=== PATIENT | female | born 1975 | race Caucasian/White ===

== ENCOUNTER 2019-08-15 15:54 | Emergency (ER) | payer SELFPAY ==
--- OUTSIDE RECORDS SUMMARY | 2019-08-15 16:10 | XMS REPORT | Referral Summary ---
Author Author [facility] Organization [facility] Address Unknown Phone Unavailable Care Team Providers Care Stem Processing Machine Operator Name Role Phone No PCP, Pt States PCP Encounter VC Date(s): 11/18/15 - 11/19/15 [facility] [address] [place] [address] [phone] Discharge Diagnosis: Abdominal pain Discharge Diagnosis: Ovarian cyst Discharge Disposition: 01-Home or Self Care Attending Physician: Sarmad Hall MD Admitting Physician: Sarmad Hall MD Vital Signs Most recent to 1 oldest [Reference Range]: Temperature Oral 36.6 degC [35.8-37.3 degC] (11/18/15 9:58 PM) Peripheral Pulse 59 bpm Rate [60-100 bpm] *LOW* (11/19/15 3:29 AM) Heart Rate Monitored 58 bpm [60-100 bpm] *LOW* (11/19/15 2:24 AM) Respiratory Rate 22 br/min [14-20 br/min] *HI* (11/18/15 9:58 PM) Blood Pressure 120/93 mmHg [90-140/60-90 mmHg] (11/19/15 3:29 AM) Mean Arterial 118 mmHg Pressure, Cuff (11/19/15 1:19 AM) SpO2 100 % (11/19/15 2:24 AM) Problem List Condition Effective Dates Status Health Status Informan t Acute Active pain(Confirmed) Ovarian Active patient cyst(Confirmed) Depression(Confirmed Active patient ) Fibromyalgia(Confirm Active patient ed) Ineffective coping Active (individual)(Confirm ed)1 AXIS I: Active Polysubstance dependence - opiates, benzodiazepines, cocaine, marijuana and with physiol dependence(Confirmed ) Scoliosis(Confirmed) Active patient Tobacco Active patient user(Confirmed) 1Problem added automatically by system based on initiation of Ineffective Coping Plan of Care Allergies, Adverse Reactions, Alerts No Known Allergies Medications Benadryl 25 mg oral capsule 2 caps, Oral, Bedtime (once a day), Insomnia, 0 Refill(s) Start Date: 08/26/13 Status: Ordered Ultram 50 mg oral tablet 50 mg 1 tabs, Oral, q8hr, as needed for pain, # 12 tabs, 0 Refill(s) Start Date: 11/19/15 Stop Date: 11/22/15 Status: Ordered Results Hematology Most recent to 1 oldest [Reference Range]: WBC [4.8-10.8 6.6 10*3/uL 10*3/uL] (11/19/15 12:16 AM) RBC [4.00-5.20] 4.37 (11/19/15 12:16 AM) Hgb [12.0-16.0 12.9 gm/dL gm/dL] (11/19/15 12:16 AM) Hct [37.0-47.0 %] 38.9 % (11/19/15 12:16 AM) MCV [82.0-99.0 fL] 89.0 fL (11/19/15 12:16 AM) MCH [27.0-32.0 pg] 29.5 pg (11/19/15 12:16 AM) MCHC [32.0-36.0 33.2 gm/dL gm/dL] (11/19/15 12:16 AM) RDW [11.5-14.5 %] 13.4 % (11/19/15 12:16 AM) Platelet [150-400 225 10*3/uL 10*3/uL] (11/19/15 12:16 AM) MPV [9.4-12.4 fL] 9.3 fL *LOW* (11/19/15 12:16 AM) Immature 0.2 % Granulocytes (11/19/15 12:16 AM) [0.0-1.0 %] Neutrophils [51-75 53 % %] (11/19/15 12:16 AM) Lymphocytes [20-46 36 % %] (11/19/15 12:16 AM) Monocytes [4-11 %] 8 % (11/19/15 12:16 AM) Eosinophils [0-4 %] 2 % (11/19/15 12:16 AM) Basophils [0-2 %] 1 % (11/19/15 12:16 AM) Neutro Absolute 3.51 10*3 [1.90-7.00 10*3] (11/19/15 12:16 AM) Lymph Absolute 2.39 10*3 [0.80-3.30 10*3] (11/19/15 12:16 AM) Woodward Absolute 0.54 10*3 [0.30-1.00 10*3] (11/19/15 12:16 AM) Eos Absolute 0.10 10*3 [0.00-0.50 10*3] (11/19/15 12:16 AM) Baso Absolute 0.06 10*3 [0.00-0.20 10*3] (11/19/15:16 AM) Nucleated RBC 0.0 /100 WBC Automated [0 /100 (11/19/15:16 AM) WBC] Chemistry Most recent to 1 oldest [Reference Range]: Sodium Lvl [136-144 138 mEq/L mEq/L] (11/19/15:16 AM) Potassium Lvl 3.7 mEq/L [3.6-5.1 mEq/L] (11/19/15 12:16 AM) Chloride [99-109 106 mEq/L mEq/L] (11/19/15:16 AM) CO2 [22-32 mEq/L] 27 mEq/L (11/19/15:16 AM) AGAP [3-20] 5 (11/19/15:16 AM) BUN [4-20 mg/dL] 9 mg/dL (11/19/15:16 AM) Glucose Lvl [70-100 81 mg/dL mg/dL] (11/19/15:16 AM) Creatinine Lvl 0.75 mg/dL [0.44-1.03 mg/dL] (11/19/15:16 AM) eGFR [>60] >60 1 (11/19/15:16 AM) Calcium Lvl 9.2 mg/dL [8.6-10.0 mg/dL] (11/19/15 12:16 AM) Albumin Lvl [3.5-4.8 3.9 gm/dL gm/dL] (11/19/15 12:16 AM) Total Protein 7.0 gm/dL [6.1-7.9 gm/dL] (11/19/15 12:16 AM) Globulin [1.9-4.3 3.1 gm/dL gm/dL] (11/19/15 12:16 AM) ALT [14-54 U/L] 15 U/L (11/19/15 12:16 AM) AST [15-41 U/L] 17 U/L (11/19/15 12:16 AM) Alk Phos [26-104 44 U/L U/L] (11/19/15 12:16 AM) Bili Total [0.2-1.2 0.7 mg/dL 2 mg/dL] (11/19/15 12:16 AM) Lipase Lvl [8-48 17 U/L U/L] (11/19/15 12:16 AM) Screen, Negative Urine NPT (11/19/15 12:43 AM) 1Result Comment: Multiply eGFR results by 1.21 for race. 2Result Comment: Naproxen, specifically the metabolite O-desmethylnaproxen, may cause spurious elevation in Total Bilirubin levels. Urinalysis Most recent to 1 oldest [Reference Range]: UA Color Yellow (11/19/15 12:16 AM) UA Appear Clear (11/19/15 12:16 AM) UA pH [5.0-8.0] 5.0 (11/19/15 12:16 AM) UA Leuk Est Negative [Negative] (11/19/15 12:16 AM) UA Nitrite Negative [Negative] (11/19/15 12:16 AM) UA Protein Negative [Negative] (11/19/15 12:16 AM) UA Glucose Negative [Negative] (11/19/15 12:16 AM) UA Ketones Negative [Negative] (11/19/15 12:16 AM) UA Urobilinogen Negative [<1.0] (11/19/15 12:16 AM) UA Bili [Negative] Negative (11/19/15 12:16 AM) UA Blood [Negative] Negative (11/19/15 12:16 AM) UA Spec Grav 1.025 [1.003-1.030] (11/19/15 12:16 AM) Type Catheter (11/19/15 12:16 AM) Immunizations No data available for this section Procedures No data available for this section Social History Social History Type Response Smoking Status Current some day smoker; Ty pe: Cigarettes; Tobacco use per day: Less than Pack Assessment and Plan No data available for this section
--- OUTSIDE RECORDS SUMMARY | 2019-08-15 16:10 | XMS REPORT | Referral Summary ---
Author Author [facility] Organization [facility] Address Unknown Phone Unavailable Care Team Providers Care Screen Printing Machine Operator Name Role Phone No PCP, Pt States PCP Encounter VC Date(s): 10/21/14 - 10/21/14 [facility] [address] [place] [address] Discharge Diagnosis: Pain, dental Final: UNSPECIFIED DISORDER OF THE TEETH AND SUPPORTING STRUCTURES Final: Tooth (broken) (fractured) (due to trauma), uncomplicated Final: TOBACCO USE DISORDER Discharge Disposition: 01-Home or Self Care Attending Physician: Sarmad Hall MD Admitting Physician: Sarmad Hall MD Referring Physician: Self Referred, X Vital Signs Most recent to 1 oldest [Reference Range]: Temperature Oral 36.4 degC [35.8-37.3 degC] (10/21/14 2:09 PM) Peripheral Pulse 76 bpm Rate [60-100 bpm] (10/21/14 3:21 PM) Respiratory Rate 18 br/min [14-20 br/min] (10/21/14 3:21 PM) Blood Pressure 115/64 mmHg [90-140/60-90 mmHg] (10/21/14 3:21 PM) SpO2 99 % (10/21/14 3:21 PM) Problem List Condition Effective Dates Status Health [...] Adverse Reactions, Alerts No Known Allergies Medications albuterol 0 Refill(s) Start Date: 02/09/14 Status: Ordered Benadryl 25 mg oral capsule 2 caps, Oral, Bedtime (once a day), Insomnia, 0 Refill(s) Start Date: 08/26/13 Status: Ordered ibuprofen 800 mg oral tablet 1 tabs, Oral, q8hr, as needed for pain, # 21 tabs, 0 Refill(s) Start Date: 02/09/14 Stop Date: 02/16/14 Status: Ordered Naprosyn 250 mg oral tablet 250 mg 1 tabs, Oral, BID, # 60 tabs, 0 Refill(s) Start Date: 08/13/14 Status: Ordered naproxen 500 mg oral tablet 1 tabs, Oral, BID, as needed for pain, # 20 tabs, 0 Refill(s) Start Date: 03/09/14 Status: Ordered Results No data available for this section Immunizations No data available for this section Procedures No data available for this section Social History Social History Type Response Smoking Status Current some day smoker; Ty pe: Cigarettes; Tobacco use per day: Less than Pack Assessment and Plan No data available for this section
--- OUTSIDE RECORDS SUMMARY | 2019-08-15 16:10 | XMS REPORT | Referral Summary ---
Author Author [facility] Organization [facility] Address Unknown Phone Unavailable Care Team Providers Care Cigarette Tipper Name Role Phone No PCP, Pt States PCP Encounter VC Date(s): 08/13/14 - 08/13/14 Via [facility] [address] [place] [address] [phone] Discharge Diagnosis: Overuse syndrome Final: PAIN IN JOINT INVOLVING SHOULDER REGION Final: Shoulder pain Discharge Disposition: 01-Home or Self Care Attending Physician: Jarred Rader MD Admitting Physician: Jarred Rader MD Vital Signs Most recent to 1 oldest [Reference Range]: Temperature Oral 37.0 degC [35.8-37.3 degC] (08/13/14 10:49 AM) Peripheral Pulse 102 bpm Rate [60-100 bpm] *HI* (08/13/14 10:49 AM) Respiratory Rate 14 br/min [14-20 br/min] (08/13/14 10:49 AM) Blood Pressure 139/73 mmHg [90-140/60-90 mmHg] (08/13/14 10:49 AM) SpO2 98 % (08/13/14 10:49 AM) Problem List Condition Effective Dates Status [...]
--- OUTSIDE RECORDS SUMMARY | 2019-08-15 16:10 | XMS REPORT | Referral Summary ---
Author Author [facility] Organization [facility] Address Unknown Phone Unavailable Care Team Providers Care Assistant Foreman Name Role Phone No PCP, Pt States PCP Encounter VC Date(s): 07/12/14 - 07/12/14 Via [facility] [address] [place] [address] Discharge Diagnosis: Abscess of skin Final: CELLULITIS AND ABSCESS OF BUTTOCK Discharge Disposition: 01-Home or Self Care Attending Physician: Amari Chawla MD Admitting Physician: Amari Chawla MD Vital Signs Most recent to 1 oldest [Reference Range]: Temperature Oral 36.6 degC [35.8-37.3 degC] (07/12/14 3:26 PM) Peripheral Pulse 79 bpm Rate [60-100 bpm] (07/12/14 4:04 PM) Respiratory Rate 18 br/min [14-20 br/min] (07/12/14 4:04 PM) Blood Pressure 125/86 mmHg [90-140/60-90 mmHg] (07/12/14 4:04 PM) SpO2 99 % (07/12/14 4:04 PM) Problem List Condition Effective Dates Status [...]
--- OUTSIDE RECORDS SUMMARY | 2019-08-15 16:10 | XMS REPORT | Referral Summary ---
Author Author [facility] Organization [facility] Address Unknown Phone Unavailable Care Team Providers Care Cnp Name Role Phone No PCP, Pt States PCP Encounter VC Date(s): 07/02/14 - 07/02/14 Via [facility] [address] [place] [address] Discharge Diagnosis: Female pelvic pain Discharge Diagnosis: Left ovarian cyst Final: OTHER AND UNSPECIFIED OVARIAN CYST Final: UNSPECIFIED SYMPTOM ASSOCIATED WITH FEMALE GENITAL ORGANS Discharge Disposition: 01-Home or Self Care Attending Physician: Franklin Mckeon MD Admitting Physician: Franklin Mckeon MD Vital Signs Most recent to 1 oldest [Reference Range]: Temperature Oral 36.4 degC [35.8-37.3 degC] (07/02/14 3:10 PM) Peripheral Pulse 86 bpm Rate [60-100 bpm] (07/02/14 7:01 PM) Respiratory Rate 18 br/min [14-20 br/min] (07/02/14 7:01 PM) Blood Pressure 110/79 mmHg [90-140/60-90 mmHg] (07/02/14 7:01 PM) SpO2 99 % (07/02/14 7:01 PM) Problem List Condition Effective Dates Status [...] Refill(s) Start Date: 03/09/14 Status: Ordered Results Hematology Most recent to 1 oldest [Reference Range]: WBC [4.8-10.8 8.1 10*3/uL 10*3/uL] (07/02/14 4:14 PM) RBC [4.00-5.20 4.88 10*6/uL 10*6/uL] (07/02/14 4:14 PM) Hgb [12.0-16.0 14.9 gm/dL gm/dL] (07/02/14 4:14 PM) Hct [37.0-47.0 %] 43.2 % (07/02/14 4:14 PM) MCV [82.0-99.0 fL] 88.5 fL (07/02/14 4:14 PM) MCH [27.0-32.0 pg] 30.5 pg (07/02/14 4:14 PM) MCHC [32.0-36.0 34.5 gm/dL gm/dL] (07/02/14 4:14 PM) RDW [11.5-14.5 %] 13.4 % (07/02/14 4:14 PM) Platelet [150-400 244 10*3/uL 10*3/uL] (07/02/14 4:14 PM) MPV [9.4-12.4 fL] 10.0 fL (07/02/14 4:14 PM) Immature 0.4 % Granulocytes (07/02/14 4:14 PM) [0.0-1.0 %] Neutrophils [51-75 66 % %] (07/02/14 4:14 PM) Lymphocytes [20-46 25 % %] (07/02/14 4:14 PM) Monocytes [4-11 %] 8 % (07/02/14 4:14 PM) Eosinophils [0-4 %] 2 % (07/02/14 4:14 PM) Basophils [0-2 %] 0 % (07/02/14 4:14 PM) Neutro Absolute 5.33 THOUS [1.90-7.00 THOUS] (07/02/14 4:14 PM) Lymph Absolute 2.01 THOUS [0.80-3.30 THOUS] (07/02/14 4:14 PM) Stark Absolute 0.62 THOUS [0.30-1.00 THOUS] (07/02/14 4:14 PM) Eos Absolute 0.13 THOUS [0.00-0.50 THOUS] (07/02/14:14 PM) Baso Absolute 0.02 THOUS [0.00-0.20 THOUS] (07/02/14:14 PM) Nucleated RBC 0.0 /100 WBC Automated [0 /100 (07/02/14:14 PM) WBC] Chemistry Most recent to 1 oldest [Reference Range]: Sodium Lvl [136-144 139 mEq/L mEq/L] (07/02/14:14 PM) Potassium Lvl 4.1 mEq/L 1 [3.6-5.1 mEq/L] (07/02/14 4:14 PM) Chloride [99-109 107 mEq/L mEq/L] (07/02/14:14 PM) CO2 [22-32 mEq/L] 24 mEq/L (07/02/14:14 PM) AGAP [3-20] 8 (07/02/14 4:14 PM) BUN [4-20 mg/dL] 14 mg/dL (07/02/14 4:14 PM) Glucose Lvl [70-100 83 mg/dL mg/dL] (07/02/14 4:14 PM) Creatinine Lvl 0.72 mg/dL [0.44-1.03 mg/dL] (07/02/14:14 PM) eGFR [>60] >60 2 (5/2/15 4:14 PM) Calcium Lvl 9.2 mg/dL [8.6-10.0 mg/dL] (07/02/14 4:14 PM) Albumin Lvl [3.5-4.8 4.0 gm/dL gm/dL] (07/02/14 4:14 PM) Total Protein 6.8 gm/dL [6.1-7.9 gm/dL] (07/02/14 4:14 PM) Globulin [1.9-4.3 2.8 gm/dL gm/dL] (07/02/14 4:14 PM) ALT [14-54 U/L] 13 U/L *LOW* (07/02/14 4:14 PM) AST [15-41 U/L] 18 U/L (07/02/14 4:14 PM) Alk Phos [26-104 51 U/L U/L] (07/02/14 4:14 PM) Bili Total [0.2-1.2 0.9 mg/dL 3 mg/dL] (07/02/14 4:14 PM) Screen, Negative Urine NPT (07/02/14 3:42 PM) 1Result Comment: Hemolyzed specimen. The following tests may be affected: ALT, AST, Ammonia, Iron, Potassium, LDH, Amylase, CPK, and Total Bilirubin. 2Result Comment: Multiply eGFR results by 1.21 for race. 3Result Comment: Naproxen, specifically the metabolite O-desmethylnaproxen, may cause spurious elevation in Total Bilirubin levels. Urinalysis Most recent to 1 oldest [Reference Range]: UA Color Yellow (07/02/14 3:36 PM) UA Appear Clear (07/02/14 3:36 PM) UA pH [5.0-8.0] 5.0 (07/02/14 3:36 PM) UA Leuk Est Negative [Negative] (07/02/14 3:36 PM) UA Nitrite Negative [Negative] (07/02/14 3:36 PM) UA Protein Negative [Negative] (07/02/14 3:36 PM) UA Glucose Negative [Negative] (07/02/14 3:36 PM) UA Ketones Negative [Negative] (07/02/14 3:36 PM) UA Urobilinogen 1.0 mg/dL [<1.0 mg/dL] (07/02/14 3:36 PM) UA Bili [Negative] Negative (07/02/14 3:36 PM) UA Blood [Negative] Negative (07/02/14 3:36 PM) UA Spec Grav 1.020 [1.003-1.030] (07/02/14 3:36 PM) Type Clean Catch (07/02/14 3:36 PM) Microbiology Reports TEST: Affirm Vaginitis Panel STATUS: Auth (Verified) BODY SITE: SOURCE: Cervix/Vaginal COLLECTED DATE/TIME: 07/02/14 5:44 PM Affirm Vaginitis Panel Negative for Trichomonas vaginalis Negative for Gardnerella vaginalis Negative for Anne species Immunizations No data available for this section Procedures No data available for this section Social History Social History Type Response Smoking Status Current some day smoker; Ty pe: Cigarettes; Tobacco use per day: Less than Pack Assessment and Plan No data available for this section
--- OUTSIDE RECORDS SUMMARY | 2019-08-15 16:10 | XMS REPORT | Referral Summary ---
Author Author [facility] Organization [facility] Address Unknown Phone Unavailable Care Team Providers Care Building Drafting Officer Name Role Phone No PCP, Pt States PCP Encounter VC Date(s): 11/26/14 - 11/26/14 Via [facility] [address] [place] [address] Discharge Diagnosis: Abscess and cellulitis Final: CELLULITIS AND ABSCESS OF TRUNK Final: TOBACCO USE DISORDER Discharge Disposition: 01-Home or Self Care Attending Physician: Sarmad Hall MD Admitting Physician: Sarmad Hall MD Vital Signs Most recent to 1 oldest [Reference Range]: Temperature Oral 36.8 degC [35.8-37.3 degC] (11/26/14 4:16 PM) Peripheral Pulse 90 bpm Rate [60-100 bpm] (11/26/14 6:37 PM) Respiratory Rate 16 br/min [14-20 br/min] (11/26/14 6:37 PM) Blood Pressure 116/70 mmHg [90-140/60-90 mmHg] (11/26/14 6:37 PM) SpO2 98 % (11/26/14 6:37 PM) Problem List Condition Effective Dates Status [...]
--- OUTSIDE RECORDS SUMMARY | 2019-08-15 16:10 | XMS REPORT | Referral Summary ---
Author Author [facility] Organization [facility] Address Unknown Phone Unavailable Care Team Providers Care Cane Cutter Name Role Phone No PCP, Pt States PCP Encounter VC Date(s): 07/09/14 - 07/09/14 Via [facility] [address] [place] [address] Final: CELLULITIS AND ABSCESS OF BUTTOCK Discharge Diagnosis: Abscess and cellulitis Discharge Diagnosis: TOBACCO USE DISORDER Discharge Disposition: 01-Home or Self Care Attending Physician: Amari Chawla MD Admitting Physician: Amari Chawla MD Vital Signs Most recent to 1 oldest [Reference Range]: Temperature Oral 37.6 degC [35.8-37.3 degC] *HI* (07/09/14 5:48 PM) Peripheral Pulse 94 bpm Rate [60-100 bpm] (07/09/14 7:55 PM) Respiratory Rate 16 br/min [14-20 br/min] (07/09/14 5:48 PM) Blood Pressure 124/89 mmHg [90-140/60-90 mmHg] (07/09/14 7:55 PM) SpO2 97 % (07/09/14 7:55 PM) Problem List Condition Effective Dates Status [...] No data available for this section Procedures Procedure Date Related Diagnosis Body Site Incision and drainage of abscess (eg, 07/09/14 carbuncle, suppurative hidradenitis, cutaneous or subcutaneous abscess, cyst , furuncle, or paronychia); complicated o r multiple Social History Social History Type Response Smoking Status Current some day smoker; Ty pe: Cigarettes; Tobacco use per day: Less than Pack Assessment and Plan No data available for this section
--- OUTSIDE RECORDS SUMMARY | 2019-08-15 16:11 | XMS REPORT | Referral Summary ---
Author Author [facility] Organization [facility] Address Unknown Phone Unavailable Care Team Providers Care Air Chipper Name Role Phone No PCP, Pt States PCP Encounter VC Date(s): 10/28/16 - 10/28/16 Via [facility] [address] [place] [address] [phone] Discharge Diagnosis: Dysfunctional uterine bleeding Discharge Diagnosis: Uterine fibroid Discharge Diagnosis: Chlamydia Discharge Disposition: 01-Home or Self Care Attending Physician: Sarmad Hall MD Admitting Physician: Sarmad Hall MD Vital Signs Most recent to 1 oldest [Reference Range]: Temperature Oral 36.6 degC [35.8-37.3 degC] (10/28/16 2:57 PM) Peripheral Pulse 61 bpm Rate [60-100 bpm] (10/28/16 7:03 PM) Respiratory Rate 20 br/min [14-20 br/min] (10/28/16 7:03 PM) Blood Pressure 115/79 mmHg [90-140/60-90 mmHg] (10/28/16 7:03 PM) SpO2 100 % (10/28/16 7:03 PM) Problem List Condition Effective Dates Status [...] 0 Refill(s) Start Date: 08/26/13 Status: Ordered Naprosyn 500 mg oral tablet 500 mg 1 tabs, Oral, BID, as needed for pain, X 10 days, # 20 tabs, 0 Refill(s) Start Date: 10/28/16 Stop Date: 11/07/16 Status: Ordered Results Chemistry Most recent to 1 oldest [Reference Range]: Screen, Negative Urine NPT (10/28/16 3:25 PM) Urinalysis Most recent to 1 oldest [Reference Range]: UA Color Yellow (10/28/16 3:17 PM) UA Appear Sl Cloudy (10/28/16 3:17 PM) UA pH [5.0-8.0] 5.0 (10/28/16 3:17 PM) UA Leuk Est Negative [Negative] (10/28/16 3:17 PM) UA Nitrite Negative [Negative] (10/28/16 3:17 PM) UA Protein Negative [Negative] (10/28/16 3:17 PM) UA Glucose Negative [Negative] (10/28/16 3:17 PM) UA Ketones Negative [Negative] (10/28/16 3:17 PM) UA Urobilinogen Negative [<1.0] (10/28/16 3:17 PM) UA Bili [Negative] Negative (10/28/16 3:17 PM) UA Blood [Negative] Pos 2+ *ABN* (10/28/16 3:17 PM) UA Spec Grav 1.020 [1.003-1.030] (10/28/16 3:17 PM) Type Clean Catch (10/28/16 3:17 PM) UA WBC [0-4] 0-2 (10/28/16 3:17 PM) UA RBC [0-2] 0-2 (10/28/16 3:17 PM) Epithelial Cells 0-2 (10/28/16 3:17 PM) UA Bacteria Rare (10/28/16 3:17 PM) UA Mucous Present (10/28/16 3:17 PM) Microbiology Reports TEST: Affirm Vaginitis Panel STATUS: Auth (Verified) BODY SITE: SOURCE: Cervix/Vaginal COLLECTED DATE/TIME: 10/28/16 4:00 PM Affirm Vaginitis Panel Negative for Trichomonas vaginalis Positive for Gardnerella vaginalis Negative for Anne species Immunizations No data available for this section Procedures No data available for this section Social History Social History Type Response Smoking Status Current some day smoker; Ty pe: Cigarettes; Tobacco use per day: Less than Pack Assessment and Plan No data available for this section
--- OUTSIDE RECORDS SUMMARY | 2019-08-15 16:11 | XMS REPORT | Continuity of Care Document ---
Demographics Preferred Language Unknown Marital Status Unknown Shinto Affiliation Unknown Race Unknown Ethnic Group Unknown Author Organization Unknown Address Unknown Phone Unavailable Allergies Active Description Code Type Severity Reaction Onset Reported/Identified Relationship to Patient Clinical Status Yes No Known Drug Intolerances No Known Drug Intolerances Drug Allergy Unknown N/A 01/17/2009 Yes No Allergy Information Drug Allergy 10/21/2011 Yes No Allergy Information Drug Allergy N/A N/A 10/21/2011 Yes No Known Drug Intolerances No Known Drug Intolerances Drug Allergy Unknown NKDA 08/11/2013 Yes No Known Allergies NKMA N/A N/A 08/13/2013 Medications Medication Packaging Start Date St op Date Route Dosage Sig ondansetron(ondansetron) 2 m L 08/13/2013 08/14/2013 Oral 4 mg 4 mg, Oral, Once methadone(methadone) 08/13/2013 08/17/2013 Oral 60 mg 60 mg, Oral, Daily, Verified with [facility] Soham Varela RN (last dose @ center 08/09/13) LORazepam(Ativan) 1 mL 08/13/2013 08/13/2013 IntraMuscular 2 mg 2 mg, IntraMuscular, Once promethazine(Phenergan) 1 mL 08/13/2013 08/17/2013 IntraMuscular 25 mg 25 mg, IntraMuscular, q4hr, PRN: Nausea LORazepam(Ativan) 0.5 mL 08/13/2013 08/17/2013 IntraMuscular 1 mg 1 mg, IntraMuscular, q5min, PRN: Seizure haloperidol(Haldol) 0.2 mL 08/13/2013 08/17/2013 IntraMuscular 1 mg 1 mg, IntraMuscular, q4hr, PRN: Agitation ibuprofen(ibuprofen) 1 tabs 08/13/2013 08/17/2013 Oral 400 mg 400 mg, Oral, q6hr, PRN: Pain Moderate (4-6) ondansetron(Zofran) 1 tabs 08/13/2013 08/17/2013 Oral 4 mg 4 mg, Oral, q6hr, PRN: Nausea LORazepam(Ativan) 1 mL 08/13/2013 08/13/2013 Oral 2 mg 2 mg, Oral, Once, PRN: Anxiety LORazepam(LORazepam) 2 tabs 08/13/2013 08/13/2013 Oral 2 mg 2 mg, Oral, Once methadone(methadone) 6 mL 08/14/2013 08/16/2013 Oral 60 mg 60 mg, Oral, Daily traZODone(traZODone) 1 tabs 08/14/2013 08/17/2013 Oral 50 mg 50 mg, Oral, Bedtime (once a day), PRN: Insomnia methadone(methadone) 2 tabs 08/14/2013 08/14/2013 Oral 20 mg 20 mg, Oral, Daily diphenhydrAMINE(Benadryl) 1 tabs 08/14/2013 08/17/2013 Oral 25 mg 25 mg, Oral, q6hr, PRN: Pruritus/Itching albuterol(ProAir HFA 90 mcg/ inh inhalation aerosol) 2 puffs 08/14/2013 08/17/2013 Inha lation 2 puffs, Inhalat ion, q4hr, PRN: as needed for wheezing acetaminophen(acetaminophen) 08/14/2013 08/17/2013 Oral 650 mg 650 mg, Oral, Daily, PRN: as needed for pain nicotine(nicotine 2 mg oral transmucosal g um) 1 Each 08/15/2013 08/17/2013 Chewed 2 mg 2 mg, 1 Each, Chewed, q2hr, PRN: Smoking Cessation nicotine(nicotine 14 mg/24 h r transdermal film, extended release) 1 patches 08/15/2013 08/17/2013 TransDermal 1 patches, Trans Dermal, Daily QUEtiapine(SEROquel) 1 tabs 08/15/2013 08/17/2013 Oral 50 mg 50 mg, Oral, Bedtime (once a day) haloperidol(Haldol) 1 tabs 08/16/2013 08/17/2013 Oral 2 mg 2 mg, Oral, BID methadone(methadone) 4 mL 08/16/2013 08/17/2013 Oral 40 mg 40 mg, Oral, Daily QUEtiapine(SEROquel 50 mg oral tablet) 1 tabs 08/17/2013 08/26/2013 Oral 50 mg 1 tabs, Oral, Bedtime (once a day) haloperidol(Haldol) 08/17/2013 08/26/2013 Oral 2 mg 2 mg, Oral, BID methadone(methadone) 08/21/2013 08/26/2013 Oral Oral QUEtiapine(SEROquel) 1 tabs 08/22/2013 08/25/2013 Oral 50 mg 50 mg, Oral, Bedtime (once a day) phenol topical(Cepastat) 1 l ozenges 08/22/2013 08/26/2013 Oral 1 lozenges, Oral, q2hr, PRN: Sore Throat ondansetron(Zofran) 1 tabs 08/22/2013 08/26/2013 Oral 4 mg 4 mg, Oral, q6hr, PRN: Nausea ibuprofen(ibuprofen) 1 tabs 08/22/2013 08/22/2013 Oral 400 mg 400 mg, Oral, q6hr, PRN: Pain Moderate (4-6) LORazepam(Ativan) 0.5 mL 08/22/2013 08/26/2013 IntraMuscular 1 mg 1 mg, IntraMuscular, q5min, PRN: Seizure promethazine(Phenergan) 1 mL 08/22/2013 08/26/2013 IntraMuscular 25 mg 25 mg, IntraMuscular, q4hr, PRN: Nausea haloperidol(Haldol) 1 tabs 08/22/2013 08/22/2013 Oral 2 mg 2 mg, Oral, q4hr, PRN: Agitation Al hydroxide/Mg hydroxide/si methicone(Maalox Advanced Maximum Strength oral suspension) 15 mL 08/23/19 14 08/26/2013 Oral 15 mL, Oral, q6hr, PRN: Other (See Comment) LORazepam(Ativan) 1 mL 08/22/2013 08/26/2013 IntraMuscular 2 mg 2 mg, IntraMuscular, q4hr, PRN: Agitation acetaminophen(acetaminophen) 2 tabs 08/22/2013 08/26/2013 Oral 650 mg 650 mg, Oral, q4hr, PRN: Pain haloperidol(Haldol) 1 mL 08/22/2013 08/26/2013 IntraMuscular 5 mg 5 mg, IntraMuscular, q4hr, PRN: Agitation haloperidol(Haldol) 1 tabs 08/22/2013 08/23/2013 Oral 2 mg 2 mg, Oral, BID nicotine(nicotine 2 mg oral transmucosal g um) 1 Each 08/22/2013 08/26/2013 Oral 2 mg 2 mg, 1 Each, Oral, q1hr, NV N: Other (See Comment) nicotine(Habitrol 21 mg/24 h r transdermal film, extended release) 1 patches 08/22/2013 08/26/2013 TransDermal 1 patches, Trans Dermal, Daily phenol topical(Cepastat) 1 l ozenges 08/22/2013 08/26/2013 Oral 1 lozenges, Oral, q2hr, PRN: Sore Throat haloperidol(Haldol) 1 tabs 08/22/2013 08/26/2013 Oral 5 mg 5 mg, Oral, q4hr, PRN: Agitation QUEtiapine(SEROquel) 1 tabs 08/22/2013 08/24/2013 Oral 25 mg 25 mg, Oral, q4hr, PRN: Agitation ibuprofen(ibuprofen) 1 tabs 08/22/2013 08/26/2013 Oral 600 mg 600 mg, Oral, q8hr loratadine(Claritin) 1 tabs 08/23/2013 08/26/2013 Oral 10 mg 10 mg, Oral, Daily haloperidol(Haldol) 1 tabs 08/24/2013 08/26/2013 Oral 1 mg 1 mg, Oral, TID diphenhydrAMINE(Benadryl) 1 caps 08/24/2013 08/26/2013 Oral 50 mg 50 mg, Oral, Bedtime (once a day), PRN: Insomnia diphenhydrAMINE-zinc acetate topical(Benadryl Extra Strength 2%-0.1% topical cream) 1 arielle 08/25/2013 08/26/2013 Topical 1 arielle, Topical, QID, PRN: Pruritus/Itching haloperidol(Haldol) 08/26/2013 03/09/2014 Oral 1 mg 1 mg, Oral, TID diphenhydrAMINE(Benadryl 25 mg oral capsul e) 2 caps 08/26/2013 Oral 50 mg 2 caps, Oral, Bedtime (once a day), PRN: Insomnia albuterol(albuterol) 02/09/2014 11/18/2015 predniSONE(predniSONE) 1 tab s 02/09/2014 02/09/2014 Oral 50 mg 50 mg, Oral, Once ibuprofen(ibuprofen) 1 tabs 02/09/2014 02/09/2014 Oral 800 mg 800 mg, Oral, Once traMADol(Ultram) 1 tabs 02/09/2014 02/09/2014 Oral 50 mg 50 mg, Oral, Once amoxicillin(amoxicillin 500 mg oral tablet ) 1 tabs 02/09/2014 02/19/2014 Oral 500 mg 1 tabs, Oral, TID, 30 tabs traMADol(Ultram 50 mg oral tablet) 1 tabs 02/09/2014 02/16/2014 Oral 50 mg 1 tabs, Oral, q12hr, 12 tabs, PRN: as needed for pain predniSONE(predniSONE 20 mg oral tablet) 2 tabs 02/09/2014 02/13/2014 Oral 40 mg 2 tabs, Oral, Daily, 8 tabs ibuprofen(ibuprofen 800 mg oral tablet) 1 tabs 02/09/2014 11/18/2015 Oral 800 mg 1 tabs, Oral, q8hr, 21 tabs, PRN: as needed for pain ketorolac(Toradol) 2 mL 03/09/2014 03/09/2014 IntraMuscular 60 mg 60 mg, IntraMuscular, Once naproxen(naproxen 500 mg oral tablet) 1 tabs 03/09/2014 11/18/2015 Oral 500 mg 1 tabs, Oral, BID, 20 tabs, PRN: as needed for pain ondansetron(Zofran) 2 mL 07/02/2014 07/02/2014 IV Push 4 mg 4 mg, IV Push, Once HYDROmorphone(Dilaudid) 1 mL 07/02/2014 07/02/2014 IV Push 1 mg 1 mg, IV Push, Once ondansetron(Zofran ODT 4 mg oral tablet, disintegrating) 1 tabs 07/02/2014 07/07/2014 Oral 4 mg 1 tabs, Oral, q6 hr, 20 tabs, PRN: as needed for nausea/vomiting HYDROcodone-acetaminophen(No rco 5 mg-325 mg oral tablet) 1 tabs 07/02/2014 07/07/2014 Oral 1 tabs, Oral, q4 hr, 20 tabs, PRN: as needed for pain HYDROcodone-acetaminophen(No rco 5 mg-325 mg oral tablet) 1 tabs 07/09/2014 07/12/2014 Oral 1 tabs, Oral, q6 hr, PRN: as needed for pain, 12 tabs, 0 Refill(s) sulfamethoxazole-trimethopri m(Bactrim DS 800 mg-160 mg oral tablet) 1 tabs 07/09/2014 07/19/2014 Oral 1 tabs, Oral, BI D, for 10 days, 20 tabs, 0 Refill(s) cephalexin(cephalexin 500 mg oral tablet) 1 tabs 07/09/2014 07/19/2014 Oral 500 mg 1 tabs, Oral, TID, for 10 da ys, 30 tabs, 0 Refill(s) lidocaine(Xylocaine HCl 1% injectable solu tion) 20 mL 07/09/2014 07/12/2014 IntraDermal 20 mL, IntraDermal, Once cyclobenzaprine(cyclobenzapr ine 10 mg oral tablet) 1 tabs 08/13/2014 08/20/2014 Oral 10 mg 10 mg = 1 tabs, Oral, Bedtim e (once a day), for 7 days, PRN: as needed for spasm, 7 tabs, 0 Refill(s) naproxen(Naprosyn 250 mg oral tablet) 1 tabs 08/13/2014 11/18/2015 Oral 250 mg 250 mg = 1 tabs, Oral, BID, 60 tabs, 0 Refill(s) HYDROcodone-acetaminophen(No rco 5 mg-325 mg oral tablet) 1 tabs 10/21/2014 10/24/2014 Oral 1 tabs, Oral, q6 hr, for 3 days, PRN: as needed for pain, 12 tabs, 0 Refill(s) amoxicillin(amoxicillin 875 mg oral tablet ) 1 tabs 10/21/2014 10/31/2014 Oral 875 mg 875 mg = 1 tabs, Oral, BID, for 10 days, 20 tabs, 0 Refill(s) sulfamethoxazole-trimethopri m(Bactrim DS 800 mg-160 mg oral tablet) 1 tabs 11/26/2014 12/06/2014 Oral 1 tabs, Oral, BI D, for 10 days, 20 tabs, 0 Refill(s) ondansetron(Zofran) 2 mL 11/18/2015 11/19/2015 IV Push 4 mg 4 mg = 2 mL, IV Push, q30min, PRN: Nausea or Vomiting morphine(morphine) 2 mL 11/18/2015 11/19/2015 IV Push 4 mg 4 mg = 2 mL, IV Push, q30min, PRN: Pain ondansetron(Zofran) 2 mL 11/18/2015 11/19/2015 IV Push 4 mg 4 mg = 2 mL, IV Push, q30min, PRN: Nausea traMADol(Ultram 50 mg oral tablet) 1 tabs 11/19/2015 11/22/2015 Oral 50 mg 50 mg = 1 tabs, Oral, q8hr, PRN: as needed for pain, 12 tabs, 0 Refill(s) ondansetron(Zofran) 2 mL 10/28/2016 10/28/2016 IV Push 4 mg 4 mg = 2 mL, IV Push, Once azithromycin(azithromycin) 4 tabs 10/28/2016 10/28/2016 Oral 1,000 mg 1,000 mg = 4 tabs, Oral, Once naproxen(Naprosyn 500 mg oral tablet) 1 tabs 10/28/2016 11/07/2016 Oral 500 mg 500 mg = 1 tabs, Oral, BID, for 10 days, PRN: as needed for pain, 20 tabs, 0 Refill(s) Problems Date Dx Coded Attending Type Code Diagnosis Diagnosed By 10/21/2011 Pascual Prabhakar III, MD 72 9.5 PAIN IN LIMB 10/21/2011 Pascual Prabhakar III, MD Final 924.3 CONTUSION OF TOE 10/21/2011 Pascual Prabhakar III, MD Admitting 959.7 LOWER LEG INJURY NEC 10/21/2011 Pascual Prabhakar III, MD External E917.4 STRUCK OBJ [facility] W/O FALL 05/29/2013 Jose Chua MD Final 292.0 DRUG WITHDRAWAL 05/29/2013 Jose Chua MD Final 304.9 0 DRUG DEP NOS-UNSPEC 05/29/2013 Jose Chua MD Final 305.1 TOBACCO USE DISORDER 05/29/2013 Jose Chua MD Final 338.2 9 CHRONIC PAIN NEC 05/29/2013 Jose Chua MD Final 724.5 BACKACHE NOS 05/29/2013 Jose Chua MD Final 784.0 HEADACHE 03/09/2014 Soham Mendoza MD Final 959.19 Other injury of other sites of trunk 03/09/2014 Soham Mendoza MD Final E885.9 FALL FROM OTHER SLIPPING, TRIPPING, OR STUMBLING 03/09/2014 Soham Mendoza MD Reason V71.4 OBSERVATION FOLLOWING OTHER ACCIDENT 07/04/2014 Final 620.2 O THER AND UNSPECIFIED OVARIAN CYST 07/04/2014 Reason 625.9 UNSPECIFIED SYMPTOM ASSOCIATED WITH FEMALE GENITAL ORGANS 07/11/2014 Reason 682.5 CELLULITIS AND ABSCESS OF BUTTOCK 07/13/2014 Final 682.5 C ELLULITIS AND ABSCESS OF BUTTOCK 07/13/2014 Reason V58.77 AFTERCARE FOLLOWING SURGERY OF THE SKIN AND SUBCUTANEOUS TISSUE, NEC 08/15/2014 Reason 719.41 PAIN IN JOINT INVOLVING SHOULDER REGION 10/21/2014 Sarmad Hall MD Final 305.1 TOBACCO USE DISORDER 10/21/2014 Sarmad Hall MD Reason 525.9 UNSPECIFIED DISORDER OF THE TEETH AND SUPPORTING STRUC TURES 10/21/2014 Sarmad Hall MD Final 873.63 Tooth (broken) (fractured) (due to trauma), uncomplica sharon 11/28/2014 Sarmad Hall MD Final 305.1 TOBACCO USE DISORDER 11/28/2014 Sarmad Hall MD Reason 682.2 CELLULITIS AND ABSCESS OF TRUNK 11/21/2015 Hall Howard Final F 17.210 Nicotine dependence, cigarettes, uncomplicated 11/21/2015 Hall Howard Final N83. 20 Unspecified ovarian cysts 11/21/2015 Hall Howard Reason R10.84 Generalized abdominal pain 10/30/2016 Hall Howard Final A74. 9 Chlamydial infection, unspecified 10/30/2016 Hall Howard Final D25. 9 Leiomyoma of uterus, unspecified 10/30/2016 Hall Howard Final F12. 10 Cannabis abuse, uncomplicated 10/30/2016 Hall Howard Final F 17.210 Nicotine dependence, cigarettes, uncomplicated 10/30/2016 Hall Howard Reason N93 .8 Other specified abnormal uterine and vaginal bleeding 10/30/2016 Hall Howard Final Z32. 02 Encounter for test, result negative Procedures There is no data. Results Test Result Range URINALYSIS, ROUTINE - 08/11/13 15:25 UA LEUKOCYTE ESTERASE DIPSTICK NEGATIVE NEGATIVE UA NITRITE DIPSTICK NEGATIVE NEGATIVE UA PROTEIN DIPSTICK NEGATIVE NEGATIVE UA GLUCOSE DIPSTICK NEGATIVE NEGATIVE UA KETONE DIPSTICK NEGATIVE NEGATIVE UA UROBILINOGEN DIPSTICK NORMAL DESIREE L UA BILIRUBIN DIPSTICK NEGATIVE NEGATIVE UA BLOOD DIPSTICK NEGATIVE NEGATIVE UA SPECIFIC GRAVITY 1.000 1.015-1.02 5 UR PH 7.0 5.0-7.0 URINALYSIS, ROUTINE - 08/13/13 02:00 UA LEUKOCYTE ESTERASE DIPSTICK NEGATIVE NEGATIVE UA NITRITE DIPSTICK NEGATIVE NEGATIVE UA PROTEIN DIPSTICK NEGATIVE NEGATIVE UA GLUCOSE DIPSTICK NEGATIVE NEGATIVE UA KETONE DIPSTICK NEGATIVE NEGATIVE UA UROBILINOGEN DIPSTICK NORMAL DESIREE L UA BILIRUBIN DIPSTICK NEGATIVE NEGATIVE UA BLOOD DIPSTICK NEGATIVE NEGATIVE UA COMMENT UA SPECIFIC GRAVITY 1.015 1.015-1.02 5 UR PH 7.0 5.0-7.0 UR DRUGS OF ABUSE SCREEN - 08/13/13 02:0 0 UR AMPHETAMINES SCREEN NEG (<1000 ng/mL) NEGATIVE UR BARBITURATE SCREEN NEG (< 200 ng/mL) NEGATIVE DRUGS OF ABUSE SCREEN COMMENT UR OPIATES SCREEN NEG (< 300 ng/mL) NE GATIVE UR PHENCYCLIDINE (PCP) SCREEN NEG (< 25 ng/mL) NEGATIVE UR CANNABINOIDS (THC) SCREEN POS (> 50 ng/mL) NEGATIVE UR COCAINE METABOLITE SCREEN NEG (< 300 ng/mL) NEGATIVE UR METHADONE SCREEN POS (> 300 ng/mL) NEGATIVE UR BENZODIAZEPINE SCREEN POS (> 200 ng/mL) NEGATIVE UR TEST - 08/13/13 02:00 UR TEST NEGATIVE NEGATIVE CBC W/DIFF - 08/13/13 02:15 EOSINOPHIL # 0.3 k/cumm 0.1-0.5 EOSINOPHIL % 2 % 2-4 GRANULOCYTE # 8.3 k/cumm 2.0-9.0 GRANULOCYTE % 64 % 50-75 LYMPHOCYTE # 3.6 k/cumm 1.0-4.0 LYMPHOCYTE % 28 % 20-30 MEAN CELL HGB 29.5 pg 27.0-33.0 MEAN CELL HGB CONCENTRATION 33.1 g/dL 32 .0-37.0 MEAN CELL VOLUME 89.2 fl 80.0-100.0 MONOCYTE # 0.7 k/cumm 0.1-1.0 MONOCYTE % 6 % 4-6 RED BLOOD CELL 4.61 m/cumm 4.00-6.00 RED CELL DISTRIBUTION WIDTH 13.4 % 11 .0-15.6 WHITE BLOOD CELL 12.9 k/cumm 5.0-10.0 HEMOGLOBIN 13.6 gm/dL 12.0-16.0 HEMATOCRIT 41.1 % 37.0-47.0 PLATELET COUNT 198 k/cumm 150-400 ACETAMINOPHEN (TYLENOL) - 08/13/13 02:15 ACETAMINOPHEN (TYLENOL) 6 mcg/mL 10-30 METABOLIC PANEL, BASIC - 08/13/13 02:45 POTASSIUM 3.8 mmol/L 3.5-5.3 EST GFR (MDRD) > 60 mL/min > 59 ANION GAP 6 mmol/L 5-15 EST CrCl (CG) > 60 mL/min > 59 GLUCOSE 85 mg/dL 70-99 CALCIUM 9.2 mg/dL 8.5-10.1 BLOOD UREA NITROGEN 12 mg/dL 7-20 CREATININE 0.8 mg/dL 0.6-1.0 SODIUM 139 mmol/L 135-148 CHLORIDE 106 mmol/L 98-110 CARBON DIOXIDE 27 mmol/L 21-32 CBC With Platelet and Differential - 00:16 Absolute Basophils 0.06 10*3 0.00-0.20 Absolute Eosinophils 0.10 10*3 0.00-0.50 Absolute Lymphocytes 2.39 10*3 0.80-3.30 Absolute Monocytes 0.54 10*3 0.30-1.00 Absolute Neutrophils 3.51 10*3 1.90-7.00 Basophils 1 % 0-2 Eosinophils 2 % 0-4 HCT 38.9 % 37.0-47.0 HGB 12.9 g/dL 12.0-16.0 Immature Granulocytes 0.2 % 0.0-1.0 Lymphocytes 36 % 20-46 MCH 29.5 pg 27.0-32.0 MCHC 33.2 g/dL 32.0-36.0 MCV 89.0 fL 82.0-99.0 Monocytes 8 % 4-11 MPV 9.3 fL 9.4-12.4 Neutrophils 53 % 51-75 Nucleated RBC Automated 0.0 /100 WBC Platelet Count 225 K/uL 150-400 RBC 4.37 10*6/uL 4.00-5.20 RDW 13.4 % 11.5-14.5 WBC 6.6 K/uL 4.8-10.8 Urinalysis with reflex microscopic - 00:16 Appearance Clear NA Bilirubin Negative NA Negative Blood Negative NA Negative Color Yellow NA Glucose, Urine Negative Negative Ketones Negative Negative Leukocyte Esterase Negative NA Negative Nitrites Negative NA Negative pH 5.0 NA 5.0-8.0 Protein Negative NA Negative Specific [place] 1.025 NA 1.003-1.030 UA Collection type Catheter NA Urobilinogen Negative mg/dL <1.0 Comprehensive Metabolic Panel (CMP) - 00:16 Albumin 3.9 g/dL 3.5-4.8 Alkaline Phosphatase 44 U/L 26-104 ALT (SGPT) 15 U/L 14-54 Anion Gap 5 NA 3-20 AST (SGOT) 17 U/L 15-41 Bilirubin Total 0.7 mg/dL 0.2-1.2 BUN 9 mg/dL 4-20 Calcium 9.2 mg/dL 8.6-10.0 Chloride 106 mEq/L 99-109 CO2 27 mEq/L 22-32 Creatinine 0.75 mg/dL 0.44-1.03 Globulin 3.1 g/dL 1.9-4.3 Glucose 81 mg/dL 70-100 Potassium 3.7 mEq/L 3.6-5.1 Protein 7.0 g/dL 6.1-7.9 Sodium 138 mEq/L 136-144 Lipase - 11/19/15 00:16 Lipase 17 U/L 8-48 eGFR - 11/19/15 00:16 eGFR >60 NA >60 Screen, Urine NPT - 11/19/15 0 0:43 Screen, Urine NPT Negative NA BB Specimen to Hold - 10/28/16 15:16 BB Specimen to Hold NA Urinalysis with reflex microscopic - 15:17 Appearance Sl Cloudy NA Bilirubin Negative NA Negative Blood Pos 2+ NA Negative Color Yellow NA Glucose, Urine Negative Negative Ketones Negative Negative Leukocyte Esterase Negative NA Negative Nitrites Negative NA Negative pH 5.0 NA 5.0-8.0 Protein Negative NA Negative Specific [place] 1.020 NA 1.003-1.030 UA Collection type Clean Catch NA Urobilinogen Negative mg/dL <1.0 Urine Microscopic - 10/28/16 15:17 Bacteria Rare NA Epithelial Cells 0 /HPF RBC, Urine 0 /HPF 0-2 Urine Mucus Present NA WBC, Urine 0 /HPF 0-4 ED RAINBOW COLLECT - 10/28/16 15:17 PLASMA SEPARATOR TUBE Done mL SERUM SEPARATOR TUBE Done mL CITRATE BLUE Done mL Lavendar Tube Done mL Screen, Urine NPT - 10/28/16 1 5:25 Screen, Urine NPT Negative NA Radiology Report from [id number] on 012 15:39:00 Final ReportADMITTING DIAGNOSIS: Toe pain painTOE LEFT/4TH - 10/21/2011 [facility] RESULT: INDICATION: Toe injury. Three views of the left fourth toe do not show any displacedfractures.IMPRESSION: Negative left fourth toe.Dictated on work station # [id number] BY: J LUIS BUSTOS M.D., RADIOLOGISTELECTRONICALLY SIGNED BY: J LUIS BUSTOS M.D., RADIOLOGISTD Oct 21 2011 8:54AT TRUDI : Oct 21 2011 3:37PS Oct 21 2011 3:37P Radiology Report from [id number] on 11/21 07:49:00 Reason For ExamAbdominal pain, generaliz edREPORTPROCEDURE: Pelvic comp/transvaginal sonogram.TECHNIQUE: Multiple real-time grayscale images were obtained of the pelvis invarious projections endovaginally.INDICATION: Pelvic pain.COMPARISON: 07/02/2014.FINDINGS:Uterus measures 9 x 6 x 6 cm and has a normal appearance. The endometrium isnormal at 4 mm. There is no mass. The right ovary measures 2.5 x 2.0 x 2.0 cm,left 3 x 2 x 2 cm. Blood flow is equal and symmetric bilaterally. There is notorsion or mass. Physiologic follicles are present bilaterally. Largest on theright is 16 mm and on the left 11 mm. There is no free fluid.IMPRESSION: Negative pelvic sonogram.Dictated on workstation:[id number] Line FINAL DICTATED BY: JEY MCADAMS MDICTATED DT/TM: 11/19/2015 7:48 AMSIGNED BY: JEY MCADAMS MDSIGNED (ELECTRONIC SIGNATURE): 11/19/2015 2:42 PMTECHNOLOGIST: CINDY ALFORD Radiology Report from [id number] on 11/21 07:49:00 Reason For ExamAbdominal pain, generaliz edREPORTPROCEDURE: CT abdomen and pelvis with contrast.TECHNIQUE: Multiple contiguous axial images were obtained through the abdomenand pelvis after administration of intravenous contrast.INDICATION: Generalized abdominal painCOMPARISON: NoneFINDINGS:The lung bases are clear. The gallbladder, solid organs and vascular structuresare grossly unremarkable. Course and caliber of the small bowel is normal.There is mild diffuse constipation without obstruction or ileus. The appendixis normal. There is trace free fluid in the cul-de-sac likely physiologic.Distal ureters and urinary bladder appear unremarkable. There is some slightuterine enlargement. No hernia identified. Bony structures are age-appropriate.IMPRESSION:1. Mild constipation without obstruction or ileus.2. Trace free fluid in the cul-de-sac likely physiologic.3. Slight uterine enlargement. Please correlate with ultrasound.Tech Comments: IV Contrast Name: OMNIPAQUE 350Contrast amount in ml's: 80Dictated on workstation:[id number] Line FINAL DICTATED BY: JEY MCADAMS MDICTATED DT/TM: 11/19/2015 6:36 AMSIGNED BY: JEY MCADAMS MDSIGNED (ELECTRONIC SIGNATURE): 11/19/2015 2:42 PMTECHNOLOGIST: SHADY YUNG LRT Radiology Report from [id number] on 10/28 18:12:00 Reason For ExamOther, (Free text in Reas on for Exam field)REPORTPROCEDURE: Pelvic sonogram Ltd/transvaginal.TECHNIQUE: Multiple real-time grayscale images were obtained over the pelvis invarious projections both transabdominally and endovaginally.INDICATION: Pelvic pain and vaginal bleeding.FINDINGS:The uterus measures 9.3 x 5.4 x 5.6 cm which is not significantly changed whencompared to the previous study. There is normal endometrial thickness of 0.4 cm.An approximally 1.4 x 1.9 x 1.3 cm nodule is seen at the uterine fundus whichlikely represents pedunculated fibroid. There is minimal free pelvic fluid.There is no evidence of adnexal mass, however, there is a mildly prominentfollicle seen in the right ovary. There is bilateral ovarian blood flow.IMPRESSION:Approximately a 2 cm pedunculated fibroid in the uterine fundus with otherwiseunremarkable pelvic ultrasound.Minimal pelvic free fluid may be physiologic in nature.Dictated on workstation:[id number] Line PRELIMINARY DICTATED BY: JASON MADDOX MDDICTATED DT/TM: 10/28/2016 6:03 Encounters ACCT No. Visit Date/Time Discharge Status Pt. Type Provider Facility Loc./Unit Complaint [id number] 11/18/2015 21:41:00 Document Registration [id number] 08/12/2013 22:06:00 014 04:20:00 DIS Emergency Dagoberto MEJIA, Roseann Brigsg [facility] W.EDS [id number] 08/11/2013 14:22:00 014 16:43:00 DIS Emergency Kobe MEJIA, Jarred Chacko [facility] W.EDN [id number] 05/29/2013 16:02:00 05/30/19 14 17:25:00 DIS Emergency Toma MEJIA, Jose [facility] [id number] 10/21/2011 08:09:00 10/21/19 12 09:05:00 DIS Emergency Aki WYATT MD, Pascual Herman [facility] [id number] 02/02/2019 14:30:00 02/02/2019 23:59: 59 [facility] [id number] 10/28/2016 14:44:00 017 19:06:00 DIS Emergency Hall Howard [facility] ED positive HCG/ Vagina l bleeding [id number] 11/18/2015 21:41:00 016 03:30:00 DIS Emergency Hall Howard [facility] ED lower abd pain/groin pain [id number] 11/26/2014 15:52:00 015 18:38:00 DIS Emergency Sarmad Hall MD [facility] ED Poss spider bite [id number] 10/21/2014 13:53:00 015 15:24:00 DIS Emergency Sarmad Hall MD [facility] ED facial pain, swellin g [id number] 03/09/2014 09:05:00 015 12:56:00 DIS Emergency Soham Mendoza MD [facility] ED Fall, Rib Pain [id number] 02/09/2014 16:19:00 014 18:21:00 DIS Emergency Amari Chawla MD [facility] ED Vomiting/ lena ruiz t [id number] 10/29/2016 05:17:45 Document Registration [id number] 11/19/2015 05:16:16 Document Registration [id number] 12/21/2014 14:15:31 Document Registration [id number] 12/21/2014 13:44:21 Document Registration [id number] 12/21/2014 13:36:50 Document Registration [id number] 12/21/2014 12:44:26 Document Registration [id number] 12/21/2014 12:37:14 Document Registration [id number] 12/21/2014 12:15:38 Document Registration [id number] 12/21/2014 12:08:18 Document Registration [id number] 12/21/2014 10:50:21 Document Registration [id number] 12/21/2014 10:45:09 Document Registration [id number] 12/21/2014 10:40:00 Document Registration [id number] 12/21/2014 09:04:27 Document Registration [id number] 12/21/2014 08:59:51 Document Registration [id number] 08/13/2014 10:48:00 Document Registration [id number] 07/12/2014 15:18:00 Document Registration [id number] 07/09/2014 17:42:00 Document Registration [id number] 07/02/2014 15:09:00 Document Registration
--- NOTE | 2019-08-15 16:38 | Diagnostic Imaging Report ---
EXAMINATION: Chest 1 view. HISTORY: Body aches. Cough. COMPARISON: 03/09/2014. FINDINGS: The lung volumes are normal. No focal consolidation is seen. No large pleural effusion or pneumothorax is seen. The cardiomediastinal silhouette is normal in size and contour. No acute osseous abnormality is seen. IMPRESSION: No acute pleural parenchymal process. Dictated by: Dictated on workstation # [id number]
[2019-08-15 16:49] LABS: HEMATOCRIT 42 % (35-52); HEMOGLOBIN 14.5 G/DL (11.5-16.0); MEAN CORPUSCULAR HEMOGLOBIN 31 PG (25-34); MEAN CORPUSCULAR HGB CONC 35 G/DL (32-36); MEAN CORPUSCULAR VOLUME 90 FL (80-99); MEAN PLATELET VOLUME 10.1 FL (7.4-10.4); PLATELET COUNT 254 10^3/uL (130-400); RED CELL DISTRIBUTION WIDTH 12.3 % (10.0-14.5); WHITE BLOOD COUNT 9.3 10^3/uL (4.3-11.0)
[2019-08-15 16:50] LABS: LYMPHOCYTES % (AUTO) 14 % (12-44); NEUTROPHILS % (AUTO) 76 % (42-75)
[2019-08-15 16:51] LABS: BASOPHILS # (AUTO) 0.1 10^3/uL (0.0-0.1); BASOPHILS % (AUTO) 1 % (0-10); EOSINOPHILS # (AUTO) 0.2 10^3/uL (0.0-0.3); EOSINOPHILS % (AUTO) 2 % (0-10); LYMPHOCYTES # (AUTO) 1.3 X 10^3 (1.0-4.0); MONOCYTES # (AUTO) 0.7 X 10^3 (0.0-1.0); MONOCYTES % (AUTO) 7 % (0-12); NEUTROPHILS # (AUTO) 7.1 X 10^3 (1.8-7.8)
--- NOTE | 2019-08-15 16:55 | ED Cough/URI ---
General Chief Complaint: Respiratory Problems Stated Complaint: SOA, THROAT PAIN Nursing Triage Note: States she started having sneezing and sore throat yesterday. This morning woke up at 2 a.m. with body aches and cough. Is coughing up yellow/clear sputum. Denies previous lung problems. Work wants her tested for covid Sepsis Screen: No Definite Risk Source: patient History of Present Illness Date Seen by Provider: Aug 15, 2019 Time Seen by Provider: 15:58 Initial Comments 43-year-old female presenting with complaints of body aches and cough with sneezing. She states that this started yesterday. She does have a history of bronchitis. She also has seasonal allergies and pollen makes her cough and more short of breath. She works with patients in a health care setting and also she has not taken care of any COVID-19 positive patient's she was instructed by her employer to come get tested. She cannot return to work until her symptoms are gone and she has a negative COVID-19 test. She has subjective fever and chills. She is coughing up sputum that is yellow to clear. Allergies and Home Medications Allergies Coded Allergies: No Known Drug Allergies (Unverified , 08/15/19) Patient Home Medication List Home Medication List Reviewed: Yes Review of Systems Review of Systems Constitutional: chills, fever (subjective), malaise EENTM: nose congestion; No epistaxis Respiratory: cough, short of breath Cardiovascular: no symptoms reported Gastrointestinal: no symptoms reported Genitourinary: no symptoms reported Musculoskeletal: muscle pain (generalized body aches) Skin: No rash Psychiatric/Neurological: Headache Past Jehlqwo-Oevrpy-Kdodmu Hx Past Med/Social Hx: Reviewed Nursing Past Med/Soc Hx Patient Social History Alcohol Use: Denies Use Recreational Drug Use: No Smoking Status: Current Someday Smoker 2nd Hand Smoke Exposure: Yes Recent Foreign Travel: No Contact w/Someone Who Travel: No Recent Infectious Disease Expo: No Recent Hopitalizations: No Physical Abuse: No Sexual Abuse: No Mistreated: No Fear: No Seasonal Allergies Seasonal Allergies: Yes Past Medical History Surgeries: No Respiratory: No Cardiac: No Neurological: No Genitourinary: No Gastrointestinal: No Musculoskeletal: No Endocrine: No HEENT: No Cancer: No Psychosocial: No Integumentary: No Blood Disorders: No Adverse Reaction/Blood Tranf: No Physical Exam Vital Signs - First Documented 08/15/19 16:01 Temp 36.8 Pulse 91 Resp 18 B/P (MAP) 119/69 (86) Pulse Ox 96 Capillary Refill : Less Than 3 Seconds Height: '" Weight: lbs. oz. kg; BMI Method: General Appearance: WD/WN, mild distress HEENT: PERRL/EOMI, normal ENT inspection, pharynx normal Neck: non-tender, full range of motion, supple, normal inspection Respiratory: chest non-tender, lungs clear, normal breath sounds Cardiovascular: normal peripheral pulses, regular rate, rhythm Gastrointestinal: normal bowel sounds, soft, no pulsatile mass Extremities: normal range of motion, non-tender, no pedal edema, normal capillary refill Neurologic/Psychiatric: alert, normal mood/affect, oriented x 3 Skin: normal color, warm/dry Progress/Results/Core Measures Suspected Sepsis Recent Fever Within 48 Hours: No Infection Criteria Present: Suspected New Infection New/Unexplained Altered Menta: No Sepsis Screen: No Definite Risk SIRS Temperature: Pulse: 91 Respiratory Rate: 18 Laboratory Tests 08/15/19 16:28: White Blood Count 9.3 Blood Pressure 119 /69 Mean: 86 Laboratory Tests 08/15/19 16:28: Creatinine 0.72, Platelet Count 254, Total Bilirubin 0.5 Results/Orders Lab Results Laboratory Tests Test 08/15/19 16:11 08/15/19 16:28 Range/Units White Blood Count 9.3 4.3-11.0 10^3/uL Red Blood Count 4.64 4.35-5.85 10^6/uL Hemoglobin 14.5 11.5-16.0 G/DL Hematocrit 42 35-52 % Mean Corpuscular Volume 90 80-99 FL Mean Corpuscular Hemoglobin 31 25-34 PG Mean Corpuscular Hemoglobin Concent 35 32-36 G/DL Red Cell Distribution Width 12.3 10.0-14.5 % Platelet Count 254 130-400 10^3/uL Mean Platelet Volume 10.1 7.4-10.4 FL Neutrophils (%) (Auto) 76 H 42-75 % Lymphocytes (%) (Auto) 14 12-44 % Monocytes (%) (Auto) 7 0-12 % Eosinophils (%) (Auto) 2 0-10 % Basophils (%) (Auto) 1 0-10 % Neutrophils # (Auto) 7.1 1.8-7.8 X 10^3 Lymphocytes # (Auto) 1.3 1.0-4.0 X 10^3 Monocytes # (Auto) 0.7 0.0-1.0 X 10^3 Eosinophils # (Auto) 0.2 0.0-0.3 10^3/uL Basophils # (Auto) 0.1 0.0-0.1 10^3/uL Sodium Level 140 135-145 MMOL/L Potassium Level 3.7 3.6-5.0 MMOL/L Chloride Level 102 98-107 MMOL/L Carbon Dioxide Level 21 21-32 MMOL/L Anion Gap 17 H 5-14 MMOL/L Blood Urea Nitrogen 8 7-18 MG/DL Creatinine 0.72 0.60-1.30 MG/DL Estimat Glomerular Filtration Rate > 60 BUN/Creatinine Ratio 11 Glucose Level 106 H 70-105 MG/DL Calcium Level 9.3 8.5-10.1 MG/DL Corrected Calcium 8.9 8.5-10.1 MG/DL Total Bilirubin 0.5 0.1-1.0 MG/DL Aspartate Amino Transf (AST/SGOT) 14 5-34 U/L Alanine Aminotransferase (ALT/SGPT) 12 0-55 U/L Alkaline Phosphatase 72 40-136 U/L C-Reactive Protein 1.12 H <0.50 MG/DL Total Protein 7.5 6.4-8.2 GM/DL Albumin 4.5 3.2-4.5 GM/DL My Orders Orders - DESTIN JORDAN MD Cbc With Automated Diff (08/15/19 16:06) Comprehensive Metabolic Panel (08/15/19 16:06) Chest 1 View Ap/Pa Only (08/15/19 16:06) O2 (08/15/19 16:06) Ed Iv/Invasive Line Start (08/15/19 16:06) Sputum Culture (08/15/19 16:06) Monitor-Rhythm Ecg Trace Only (08/15/19 16:06) Crp Fs (08/15/19 16:06) Coronavirus Sars-Cov-2 So 2018 (08/15/19 16:16) Dexamethasone Injection (Decadron Inject (08/15/19 17:26) Methylprednisolone Acetate Inj (Depo-Med (08/15/19 17:26) Vital Signs/I&O 08/15/19 08/15/19 16:01 17:54 Temp 36.8 Pulse 91 82 Resp 18 19 B/P (MAP) 119/69 (86) 111/67 Pulse Ox 96 96 Capillary Refill : Less Than 3 Seconds Blood Pressure Mean: 86 Progress Note #1: Progress Note Check labs as well as chest x-ray and send a COVID-19 screening test Progress Note #2: Progress Note No acute significant abnormality on her blood work other than elevated CRP and c hest x-ray is negative for infiltrate. Will treat with steroids to symptomatically treat for allergies and cough with congestion. Otherwise advised to be off work for 2 weeks unless she has a negative Covid-19 test and her symptoms resolved. Counseled to follow-up through the [facility] clinic for continued concerns Diagnostic Imaging Diagonstic Imaging: Xray Plain Films/CT/US/NM/MRI: chest Comments NAME: RACHEL LOVELL Tasqe REC#: [id number] PT STATUS: REG ER : 1975 PHYSICIAN: DESTIN JORDAN MD ADMIT DATE: 08/15/19/ER FS Signed Date of Exam:08/15/19 CHEST 1 VIEW AP/PA ONLY EXAMINATION: Chest 1 view. HISTORY: Body aches. Cough. COMPARISON: 03/09/2014. FINDINGS: The lung volumes are normal. No focal consolidation is seen. No large pleural effusion or pneumothorax is seen. The cardiomediastinal silhouette is normal in size and contour. No acute osseous abnormality is seen. IMPRESSION: No acute pleural parenchymal process. Dictated by: Dictated on workstation # [id number] Dict: 08/15/19 1629 Trans: 08/15/19 1643 [facility] [id number] Interpreted by: ROSE QUIROS DO Electronically signed by: ROSE QUIROS DO 08/15/19 1643 Departure Impression Primary Impression: Acute viral syndrome Additional Impressions: Upper respiratory infection with cough and congestion Seasonal allergies Disposition: 01 HOME, SELF-CARE Condition: Stable Departure-Patient Inst. Decision time for Depature: 17:28 Referrals: NO,LOCAL PHYSICIAN (PCP) Primary Care Physician [facility] [place] Patient Instructions: Viral Syndrome (DC), Viral Upper Respiratory Infection, Adult (DC) Add. Discharge Instructions: Try using Mucinex to help with loosening congestion and cough. The steroid shots will help with cough and shortness of breath. Alternate Acetaminophen and Ibuprofen as needed for fever control and body aches. Check with clinic for continued concerns. Self Isolate and Quarantine at least until you get your results back or for 2 weeks if positive on you Covid-19 test. All discharge instructions reviewed with patient and/or family. Voiced understanding. Work/School Note: Work Release Form Date Seen in the Emergency Department: Aug 15, 2019 Return to Work: Aug 30, 2019 Restrictions: Return-No Fever (24hrs) Other Restrictions Listed Below: Self Quarantine for 2 weeks or until your COVID-19 test is negative DESTIN JORDAN MD Aug 15, 2019 16:55
[2019-08-15 17:03] LABS: ALKALINE PHOSPHATASE 72 U/L (40-136); BILIRUBIN,TOTAL 0.5 MG/DL (0.1-1.0); BUN/CREATININE RATIO 11; CALCIUM 9.3 MG/DL (8.5-10.1); CARBON DIOXIDE 21 MMOL/L (21-32); CHLORIDE 102 MMOL/L (98-107); CREATININE SERUM 0.72 MG/DL (0.60-1.30); GFR ESTIMATED > 60; GLUCOSE 106 MG/DL (70-105); POTASSIUM 3.7 MMOL/L (3.6-5.0); SODIUM 140 MMOL/L (135-145)
[2019-08-15 17:04] LABS: ALANINE AMINOTRANSFERASE 12 U/L (0-55); ALBUMIN 4.5 GM/DL (3.2-4.5); TOTAL PROTEIN 7.5 GM/DL (6.4-8.2)
[2019-08-15] MEDS ORDERED: DEXAMETHASONE 10 MG/ML (DECADRON) 1 ML VIAL IM STA (17:26)
[2019-08-15] MEDS ORDERED: methylPREDNISolone 80 MG/ML (DEPO MEDROL) VIAL IM STA (17:26)
[2019-08-15 17:54] VITALS: BP 111/67
== END 2019-08-15 18:02 | disposition home or self-care (01) ==
LOC: ER FS 15:56
DX: J06.9 Acute upper respiratory infection, unspecified (principal); J30.2 Other seasonal allergic rhinitis; F17.200 Nicotine dependence, unspecified, uncomplicated; Z20.828 Contact with and (suspected) exposure to other viral communicable diseases
CPT/HCPCS: 36415; 71045; 80053; 85025; 86141; 93041; 99284; U0002; 87635

== ENCOUNTER 2019-10-27 08:47 | Emergency (ER) | payer SELFPAY ==
--- NOTE | 2019-10-27 09:15 | NUR ---
Pt called Penny and stated that she is leaving because her AC in her car is not working. She will come back this evening. Pt came out here because Janae told her to.
== END 2019-10-27 09:15 | disposition left against medical advice (07) ==
LOC: ER FS 08:48 → EDUNIT# 08:52 → ER FS 09:07
DX: R05 Cough (principal)

== ENCOUNTER 2020-08-03 13:14 | Emergency (ER) | payer SELFPAY ==
[2020-08-03] MEDS ORDERED: ONDANSETRON 4 MG/2 ML (SDV) Z0FRAN IV ONE (13:30)
[2020-08-03] MEDS ORDERED: NS IV 1000 ML 1,000 ML IV SCH (13:30)
[2020-08-03] MEDS ORDERED: PANTOPRAZOLE 40 MG (PROTONIX) VIAL IV STA (13:40)
[2020-08-03 13:46] LABS: BACTERIA,URINE NEGATIVE /HPF; BILIRUBIN,URINE NEGATIVE (NEGATIVE); CLARITY,URINE CLEAR; COLOR,URINE YELLOW; GLUCOSE, URINE (UA) NEGATIVE (NEGATIVE); KETONES,URINE NEGATIVE (NEGATIVE); LEUKOCYTE ESTERASE ,URINE NEGATIVE (NEGATIVE); NITRITE,URINE NEGATIVE (NEGATIVE); PROTEIN,URINE NEGATIVE (NEGATIVE); SQUAMOUS EPITHELIAL CELL,UR 0-2 /HPF
--- NOTE | 2020-08-03 13:55 | Diagnostic Imaging Report ---
Indication: Cough and shortness of breath Portable chest 1:39 PM Heart size and pulmonary vascularity are normal. Lungs are clear. There are no effusions or pneumothoraces. IMPRESSION: Negative chest Dictated by: Dictated on workstation # [id number]
[2020-08-03 13:58] LABS: BASOPHILS % (AUTO) 0 % (0-10); EOSINOPHILS % (AUTO) 3 % (0-10); HEMATOCRIT 41 % (35-52); HEMOGLOBIN 13.4 G/DL (11.5-16.0); LYMPHOCYTES % (AUTO) 12 % (12-44); MEAN CORPUSCULAR HEMOGLOBIN 30 PG (25-34); MEAN CORPUSCULAR HGB CONC 33 G/DL (32-36); MEAN CORPUSCULAR VOLUME 92 FL (80-99); MEAN PLATELET VOLUME 9.9 FL (7.4-10.4); MONOCYTES % (AUTO) 4 % (0-12); NEUTROPHILS # (AUTO) 9.7 X 10^3 (1.8-7.8); NEUTROPHILS % (AUTO) 80 % (42-75); PLATELET COUNT 275 10^3/uL (130-400); WHITE BLOOD COUNT 12.1 10^3/uL (4.3-11.0)
[2020-08-03 13:59] LABS: BASOPHILS # (AUTO) 0.1 10^3/uL (0.0-0.1); EOSINOPHILS # (AUTO) 0.4 10^3/uL (0.0-0.3); LYMPHOCYTES # (AUTO) 1.5 X 10^3 (1.0-4.0); MONOCYTES # (AUTO) 0.5 X 10^3 (0.0-1.0)
--- NOTE | 2020-08-03 14:04 | ED General ---
General Chief Complaint: Cough/Cold/Flu Symptoms Stated Complaint: V/N; COUGH; DIARRHEA; ABD PAIN Nursing Triage Note: Patient presents to the ED with c/o of nausea, vomiting, cough, body aches, and fatigue. She reports that her symptoms began 2 days ago with body aches and fatigue then yesterday evening she started vomiting and has had intermittent diarrhea. She states her has had the same symptoms for the past 4 or 5 days. The patient also reports she was positive for COVID 6 months ago. Nursing Sepsis Screen: No Definite Risk Source of Information: Patient History of Present Illness Date Seen by Provider: Aug 03, 2020 Time Seen by Provider: 13:20 Initial Comments 44 yo female presenting with complaints of cough, nausea, vomiting, diarrhea, body aches, fatigue. She has been sick for the last 2 days with the symptoms. She denies any fever but has had chills. Her had similar symptoms and has been sick for for 5 days. She had Covid infection 6 months ago and gets tested on Tuesdays at work for Covid. Her test this Friday was negative for Covid. She does have seasonal allergies and they usually flareup around this time of year. She does feel a little dizzy and lightheaded when she stands up. She states last night after she tried eating supper she had vomited everything she ate. She is coughing to the point of vomiting as well. She also has just nausea and vomiting from that. She denies any pain or burning with urination. She just finished her last menstrual period this last . She denies seeing any blood in her vomit or diarrhea. She has some abdominal cramping just before having diarrhea but otherwise denies any significant abdominal pain. Timing/Duration: 2-3 Days Severity: Severe Modifying Factors: worse with Eating Associated Systoms: No Chest Pain; Cough; No Diaphoresis; Fever/Chills (subjective fever and chills), Malaise, Nausea/Vomiting; No Rash, No Seizure, No Shortness of Air, No Syncope, No Weakness Allergies and Home Medications Allergies Coded Allergies: No Known Drug Allergies (Unverified , 08/15/19) Home Medications Ondansetron 4 Mg Tab.rapdis, 4 MG PO Q6H PRN for NAUSEA/VOMITING Prescribed by: DESTIN JORDAN on 08/03/20 1500 Prednisone 20 Mg Tab, 40 MG PO DAILY Prescribed by: DESTIN JORDAN on 08/03/20 1516 Patient Home Medication List Home Medication List Reviewed: Yes Review of Systems Review of Systems Constitutional: chills; No diaphoresis; dizziness; No fever; malaise EENTM: hoarseness, nose congestion Respiratory: cough; No hemoptysis; phlegm (was white but today started coughing up green colored sputum), short of breath; No stridor, No wheezing Cardiovascular: No chest pain Gastrointestinal: see HPI Genitourinary: decreased output Musculoskeletal: muscle pain (generalized body achest) Skin: No rash Psychiatric/Neurological: Anxiety Hematologic/Lymphatic: Denies Blood Clots Immunological/Allergic: see HPI (seasonal allergies that are worse around this time of year) Past Wnuubag-Zgaind-Ibuujt Hx Past Med/Social Hx: Reviewed Nursing Past Med/Soc Hx Patient Social History Alcohol Use: Denies Use Smoking Status: Current Everyday Smoker Type Used: Cigarettes 2nd Hand Smoke Exposure: Yes Recent Infectious Disease Expo: No Recent Hopitalizations: No Seasonal Allergies Seasonal Allergies: Yes Past Medical History Surgeries: No Respiratory: No Cardiac: No Neurological: No Genitourinary: No Gastrointestinal: No Musculoskeletal: No Endocrine: No HEENT: No Cancer: No Psychosocial: No Integumentary: No Blood Disorders: No Adverse Reaction/Blood Tranf: No Physical Exam Vital Signs Vital Signs - First Documented 08/03/20 08/03/20 13:15 13:48 Temp 36.7 Pulse 89 Resp 18 B/P (MAP) 146/103 (117) Pulse Ox 99 O2 Delivery Room Air Capillary Refill : Less Than 3 Seconds Height, Weight, BMI Height: '" Weight: lbs. oz. kg; BMI Method: General Appearance: WD/WN, Anxious, Moderate Distress Eyes: Bilateral Eye PERRL, Bilateral Eye EOMI HEENT: PERRL/EOMI, Moist Mucous Membranes Neck: Normal Inspection, Supple Respiratory: Chest Non Tender, No Accessory Muscle Use, No Respiratory Distress, Rhonci (right base) Cardiovascular: Regular Rate, Rhythm, Normal Peripheral Pulses Gastrointestinal: Normal Bowel Sounds, No Pulsatile Mass, Non Tender, Soft Rectal: Deferred Extremity: Normal Capillary Refill, Normal Inspection, No Pedal Edema Neurologic/Psychiatric: Alert, Oriented x3, packaging operator II-XII Norm as Tested Skin: Normal Color, Warm/Dry Focused Exam Sepsis Stage: Ruled Out Reason for ruling out sepsis: felt to be dehydration Lactate Level 08/03/20 13:50: Lactic Acid Level 2.50*H Lactic Acid Level Laboratory Tests Test 08/03/20 13:50 Lactic Acid Level 2.50 MMOL/L (0.50-2.00) *H Progress/Results/Core Measures Suspected Sepsis Recent Fever Within 48 Hours: No Infection Criteria Present: Suspected New Infection New/Unexplained Altered Menta: No Sepsis Screen: No Definite Risk SIRS Temperature: Pulse: 89 Respiratory Rate: 18 Laboratory Tests 08/03/20 13:50: White Blood Count 12.1H Blood Pressure 146 /103 Mean: 117 08/03/20 13:50: Lactic Acid Level 2.50*H Laboratory Tests 08/03/20 13:50: Creatinine 0.67, INR Comment 0.9, Platelet Count 275, Total Bilirubin 0.5 Results/Orders Lab Results Laboratory Tests Test 08/03/20 13:28 08/03/20 13:36 08/03/20 13:50 Range/Units Urine Color YELLOW Urine Clarity CLEAR Urine pH 6.0 5-9 Urine Specific Orestes >=1.030 1.016-1.022 Urine Protein NEGATIVE NEGATIVE Urine Glucose (UA) NEGATIVE NEGATIVE Urine Ketones NEGATIVE NEGATIVE Urine Nitrite NEGATIVE NEGATIVE Urine Bilirubin NEGATIVE NEGATIVE Urine Urobilinogen 1 < = 1.0 MG/DL Urine Leukocyte Esterase NEGATIVE NEGATIVE Urine RBC (Auto) NEGATIVE NEGATIVE Urine RBC NONE /HPF Urine WBC NONE /HPF Urine Squamous Epithelial Cells 0-2 /HPF Urine Crystals NONE /LPF Urine Bacteria NEGATIVE /HPF Urine Casts NONE /LPF Urine Mucus NEGATIVE /LPF Urine Culture Indicated NO SARS-CoV-2 RNA (RT-PCR) Not Detected Not Detecte White Blood Count 12.1 H 4.3-11.0 10^3/uL Red Blood Count 4.44 4.35-5.85 10^6/uL Hemoglobin 13.4 11.5-16.0 G/DL Hematocrit 41 35-52 % Mean Corpuscular Volume 92 80-99 FL Mean Corpuscular Hemoglobin 30 25-34 PG Mean Corpuscular Hemoglobin Concent 33 32-36 G/DL Red Cell Distribution Width 13.3 10.0-14.5 % Platelet Count 275 130-400 10^3/uL Mean Platelet Volume 9.9 7.4-10.4 FL Immature Granulocyte % (Auto) 0 % Neutrophils (%) (Auto) 80 H 42-75 % Lymphocytes (%) (Auto) 12 12-44 % Monocytes (%) (Auto) 4 0-12 % Eosinophils (%) (Auto) 3 0-10 % Basophils (%) (Auto) 0 0-10 % Neutrophils # (Auto) 9.7 H 1.8-7.8 X 10^3 Lymphocytes # (Auto) 1.5 1.0-4.0 X 10^3 Monocytes # (Auto) 0.5 0.0-1.0 X 10^3 Eosinophils # (Auto) 0.4 H 0.0-0.3 10^3/uL Basophils # (Auto) 0.1 0.0-0.1 10^3/uL Immature Granulocyte # (Auto) 0.0 0.0-0.1 10^3/uL Prothrombin Time 12.9 12.2-14.7 SEC INR Comment 0.9 0.8-1.4 Activated Partial Thromboplast Time 27 24-35 SEC Sodium Level 138 135-145 MMOL/L Potassium Level 3.9 3.6-5.0 MMOL/L Chloride Level 105 98-107 MMOL/L Carbon Dioxide Level 24 21-32 MMOL/L Anion Gap 9 5-14 MMOL/L Blood Urea Nitrogen 8 7-18 MG/DL Creatinine 0.67 0.60-1.30 MG/DL Estimat Glomerular Filtration Rate > 60 BUN/Creatinine Ratio 12 Glucose Level 117 H 70-105 MG/DL Lactic Acid Level 2.50 *H 0.50-2.00 MMOL/L Calcium Level 8.7 8.5-10.1 MG/DL Corrected Calcium 8.7 8.5-10.1 MG/DL Total Bilirubin 0.5 0.1-1.0 MG/DL Aspartate Amino Transf (AST/SGOT) 22 5-34 U/L Alanine Aminotransferase (ALT/SGPT) 19 0-55 U/L Alkaline Phosphatase 89 40-136 U/L Troponin I < 0.30 <0.30 NG/ML C-Reactive Protein 0.98 H <0.50 MG/DL Total Protein 7.0 6.4-8.2 GM/DL Albumin 4.0 3.2-4.5 GM/DL Lipase 18 8-78 U/L Micro Results Microbiology 08/03/20 Influenza Types A,B Antigen (BRITTANY) - Final, Complete My Orders Orders - DESTIN JORDAN MD Monitor-Rhythm Ecg Trace Only (08/03/20 13:25) Ed Iv/Invasive Line Start (08/03/20 13:25) Cbc With Automated Diff (08/03/20 13:25) Comprehensive Metabolic Panel (08/03/20 13:25) Crp Fs (08/03/20 13:25) Troponin I Fs (08/03/20 13:25) Protime With Inr (08/03/20 13:25) Partial Thromboplastin Time (08/03/20 13:25) Ekg Tracing (08/03/20 13:25) Ns Iv 1000 Ml (Sodium Chloride 0.9%) (08/03/20 13:30) Ondansetron Injection (Zofran Injectio (08/03/20 13:30) Lipase (08/03/20 13:25) Ua Culture If Indicated (08/03/20 13:25) Urine Bedside (08/03/20 13:25) Blood Culture (08/03/20 13:27) Lactic Acid Analyzer (08/03/20 13:27) Influenza A And B Antigens (08/03/20 13:39) Pantoprazole Injection (Protonix Injecti (08/03/20 13:40) Dexamethasone Injection (Decadron Inje (08/03/20 13:40) Chest 1 View Ap/Pa Only (08/03/20 13:40) Sputum Culture (08/03/20 13:40) Covid 19 Inhouse Test (08/03/20 13:36) Methylprednisolone Acetate Inj (Depo-Med (08/03/20 14:57) Medications Given in ED Current Medications Medications Dose Ordered Sig/Yamel Route Start Time Stop Time Status Last Admin Dose Admin Ondansetron HCl 4 mg ONCE ONCE IV 08/03/20 13:30 08/03/20 13:31 DC 08/03/20 13:59 4 MG Vital Signs/I&O 08/03/20 08/03/20 08/03/20 13:15 13:48 15:25 Temp 36.7 Pulse 89 71 Resp 18 20 B/P (MAP) 146/103 (117) 122/82 Pulse Ox 99 95 O2 Delivery Room Air Room Air Capillary Refill : Less Than 3 Seconds Blood Pressure Mean: 117 Progress Note #1: Progress Note check labs, flu swab, covid swab. give ivf for hydration, zofran for nausea, protonix for gastritis, decadron for allergies/cough. Differential diagnosis includes pneumonia, gastroenteritis, gastritis, cholecystitis, appendicitis, colitis, diverticulitis, influenza, Covid Progress Note #2: Progress Note Labs show mild elevation of white blood cell count to 12.1. Her lactic acid was mildly elevated to 2.5. This was felt to be more related to hydration than infection as her chest x-ray and other tests were not showing a source of infection. She had no acute infiltrate on her chest x-ray. Her urine was greatly concentrated with a specific gravity greater than 1.030. Her influenza swab was negative. She had a negative Covid swab on Friday at work this week. She was feeling better with fluids and treatment here in the ED. Will give additional steroid for allergy symptoms and continue Zofran to help with nausea and vomiting. Encourage fluids and hydration. A note to be off work until Friday so she can rest and hydrate. ECG Initial ECG Impression Date: Aug 03, 2020 Initial ECG Impression Time: 13:48 Initial ECG Rate: 78 Initial ECG Rhythm: Normal Sinus Initial ECG Comparisson: No Previous ECG Available Comment Normal sinus rhythm with a heart rate of 70 bpm. OH interval 121 ms. QT interval 354 ms with a QTc interval 404 ms. There is no acute ST elevation. There is no prior tracing available for comparison. Diagnostic Imaging Diagonstic Imaging: Xray Plain Films/CT/US/NM/MRI: chest Comments [facility]. [place], [place] NAME: RACHEL LOVELL MED REC#: [id number] PT STATUS: REG ER : 1975 PHYSICIAN: DESTIN JORDAN MD ADMIT DATE: 08/03/20/ER FS Signed Date of Exam:08/03/20 CHEST 1 VIEW AP/PA ONLY Indication: Cough and shortness of breath Portable chest 1:39 PM Heart size and pulmonary vascularity are normal. Lungs are clear. There are no effusions or pneumothoraces. IMPRESSION: Negative chest Dictated by: Dictated on workstation # [id number] Dict: 08/03/20 1353 Trans: 08/03/20 1354 [facility] [id number] Interpreted by: J LUIS BUSTOS MD Electronically signed by: J LUIS BUSTOS MD 08/03/20 1354 Departure Impression Primary Impression: Upper respiratory infection with cough and congestion Additional Impressions: Nausea, vomiting and diarrhea Seasonal allergies Disposition: 01 HOME, SELF-CARE Condition: Stable Departure-Patient Inst. Decision time for Depature: 15:01 Referrals: NO,LOCAL PHYSICIAN (PCP) Primary Care Physician [facility] Patient Instructions: Seasonal Allergies ED, Upper Respiratory Infection ED, Nausea and Vomiting, Adult ED, Diarrhea, Adult ED, Cough, Adult ED Add. Discharge Instructions: Stay well hydrated and use nausea medicine to help keep your stomach settled Follow up with clinic if not improving or having more problems All discharge instructions reviewed with patient and/or family. Voiced understanding. Scripts Prednisone (Prednisone) 20 Mg Tab 40 MG PO DAILY for allergies for 5 Days, #10 TAB 0 Refills Prov: DESTIN JORDAN MD 08/03/20 Ondansetron (Ondansetron Odt) 4 Mg Tab.rapdis 4 MG PO Q6H PRN for NAUSEA/VOMITING for 3 Days, #12 TAB 0 Refills Prov: DESTIN JORDAN MD 08/03/20 Work/School Note: Work Release Form Date Seen in the Emergency Department: Aug 03, 2020 Return to Work: Aug 07, 2020 Restrictions: Return-No Vomiting(24hrs) DESTIN JORDAN MD Aug 03, 2020 14:04
[2020-08-03 14:15] LABS: ALANINE AMINOTRANSFERASE 19 U/L (0-55); ALKALINE PHOSPHATASE 89 U/L (40-136); BILIRUBIN,TOTAL 0.5 MG/DL (0.1-1.0); BUN/CREATININE RATIO 12; CALCIUM 8.7 MG/DL (8.5-10.1); CARBON DIOXIDE 24 MMOL/L (21-32); CHLORIDE 105 MMOL/L (98-107); CREATININE SERUM 0.67 MG/DL (0.60-1.30); GFR ESTIMATED > 60; GLUCOSE 117 MG/DL (70-105); INR 0.9 (0.8-1.4); POTASSIUM 3.9 MMOL/L (3.6-5.0); PROTHROMBIN TIME PATIENT 12.9 SEC (12.2-14.7); SODIUM 138 MMOL/L (135-145)
[2020-08-03] MEDS ORDERED: methylPREDNISolone 80 MG/ML (DEPO MEDROL) VIAL IM STA (14:57)
[2020-08-03] MEDS ORDERED: ONDA4TAB11 PO (15:00)
[2020-08-03] MEDS ORDERED: PRD20T PO (15:16)
[2020-08-03 15:25] VITALS: BP 122/82
== END 2020-08-03 15:32 | disposition home or self-care (01) ==
LOC: EDUNIT# 13:14 → ER FS 13:18
DX: J06.9 Acute upper respiratory infection, unspecified (principal); R05 Cough; R09.81 Nasal congestion; R11.2 Nausea with vomiting, unspecified; R19.7 Diarrhea, unspecified; J30.2 Other seasonal allergic rhinitis; F17.210 Nicotine dependence, cigarettes, uncomplicated; Z20.822 Contact with and (suspected) exposure to COVID-19; Z79.52 Long term (current) use of systemic steroids
CPT/HCPCS: 36415; 71045; 80053; 81000; 83605; 83690; 84484; 84703; 85025; 85610; 85730; 86141; 87040; 87070; 87205; 87636; 87804; 93005; 93041

== ENCOUNTER 2021-03-19 05:44 | Emergency (ER) | payer SELFPAY ==
[~2021-03-19] VITALS: Ht 165.1 cm; Wt 93.8 kg
[~2021-03-19 05:44] MED LIST: ONDA4TAB11 PO; PRD20T PO
[2021-03-19] MEDS ORDERED: RT-ALBUTEROL HFA 8.5 GM INHALER IH STA (06:21)
[2021-03-19] MEDS ORDERED: KETOROLAC 30 MG/ML VIAL IVP STA (06:21)
[2021-03-19] MEDS ORDERED: PANTOPRAZOLE 40 MG (PROTONIX) VIAL IV STA (06:22)
--- NOTE | 2021-03-19 06:28 | ED General ---
General Chief Complaint: COVID19 Suspect/Confirmed Stated Complaint: NAUSEA/VOMITING/DIARRHEA Nursing Triage Note: Patient states that she has had nausea, vomiting and diarrhea for 3-4 days. Patient also states that she started coughing yesterday. Patient had a positive Covid exposure last week. Source of Information: Patient (NIKKIDESTIN Arriola MD) History of Present Illness Date Seen by Provider: Mar 19, 2021 Time Seen by Provider: 05:56 Initial Comments 45-year-old female presenting with complaints of 3 to 4 days of feeling sick. She states that she has had nausea, vomiting, diarrhea and coughing. She has been coughing up yellow sputum but then yesterday it turned more clear sputum. She does have a history of chronic bronchitis. She was exposed to her daughter is not her daughter's boyfriend who tested positive for COVID a week ago. She states that in the last 2 days she has not been able to keep down anything to eat or drink, not even water. She denies having any blood in her stools or vomit. She has been having yellow-colored diarrhea. She states that she was having some burning with urination today as well. She was having some pain in the right side of her chest with coughing and deep breaths. She was having some abdominal cramping especially with the diarrhea. She has generalized body aches, subjective fever and chills, sore throat, nasal congestion, headache, generalized body pains, feeling dizzy and lightheaded especially with standing. She states that she has not taken any Tylenol or ibuprofen to help with her symptoms. She has not gone anywhere to have testing for COVID after her exposure to her daughter. She presented to the emergency department today after the last 2 days of reportedly not being able to keep anything down. She denies having a primary care provider. She denies any allergies to medications and states that she is supposed to be on a rescue inhaler for her chronic bronchitis but does not currently have one. Timing/Duration: 3-4 Days Severity: Severe Modifying Factors: worse with Eating Associated Systoms: Chest Pain (right sided and with deep breaths and coughing), Cough (was bringing up yellow sputum until yesterday when it turned more clear); No Diaphoresis; Fever/Chills (subjective), Headaches, Loss of Appetite, Malaise, Nausea/Vomiting; No Rash, No Seizure; Shortness of Air; No Syncope; Weakness (general) (DESTIN JORDAN MD) Allergies and Home Medications Allergies Coded Allergies: No Known Drug Allergies (Unverified , 08/15/19) Patient Home Medication List Home Medication List Reviewed: Yes (DESTIN JORDAN MD) Azithromycin (Azithromycin) 250 Mg Tablet, 250 MG PO DAILY Prescribed by: BURAK RAMOS on 03/19/21 0737 Ondansetron (Ondansetron Odt) 4 Mg Tab.rapdis, 4 MG PO Q6H PRN for NAUSEA/VOMITING Prescribed by: DESTIN JORDAN on 08/03/20 1500 Prednisone (Prednisone) 20 Mg Tab, 40 MG PO DAILY Prescribed by: DESTIN JORDAN on 08/03/20 1516 Review of Systems Review of Systems Constitutional: chills, dizziness (with standing), fever, malaise, weakness (general) EENTM: hoarseness, nose congestion; No epistaxis Respiratory: cough; No hemoptysis; phlegm (yellow until yesterday when turned more clear to white), short of breath; No stridor; wheezing Cardiovascular: see HPI; No edema, No syncope Gastrointestinal: abdominal pain (diffuse abdominal cramping, especially when she has diarrhea); No constipation; diarrhea; No hematemesis, No jaundice; loss of appetite; No melena; nausea, vomiting Genitourinary: dysuria (started in the last day) : No LMP: Mar 05, 2021 Musculoskeletal: muscle pain (generalized body aches and pains) Skin: No change in color, No rash Psychiatric/Neurological: Headache; Denies Numbness, Denies Tremors; Weakness (general) Hematologic/Lymphatic: Denies Blood Clots (DESTIN JORDAN MD) Past Bjmchoa-Uoveyz-Mugeam Hx Patient Social History Tobacco Use?: No Smoking Status: Former Smoker Substance use?: No Alcohol Use?: No Pt feels they are or have been: No (DESTIN JORDAN MD) Seasonal Allergies Seasonal Allergies: Yes (DESTIN JORDAN MD) Past Medical History Surgery/Hospitalization HX: Chronic Bronchitis Surgeries: No Respiratory: Yes Chronic Bronchitis Cardiac: No Neurological: No Genitourinary: No Gastrointestinal: No Musculoskeletal: No Endocrine: No HEENT: No Cancer: No Psychosocial: No Integumentary: No Blood Disorders: No Adverse Reaction/Blood Tranf: No (DESTIN JORDAN MD) Physical Exam Vital Signs Vital Signs - First Documented 03/19/21 05:47 Temp 37.5 Pulse 97 Resp 18 B/P (MAP) 117/85 (96) Pulse Ox 94 O2 Delivery Room Air (BURAK RAMOS MD) Vital Signs Capillary Refill : Less Than 3 Seconds (DESTIN JORDAN MD) Height, Weight, BMI Height: '" Weight: lbs. oz. kg; 34.00 BMI Method: General Appearance: WD/WN, Other (appears to not feel well) HEENT: PERRL/EOMI, TMs Normal, Moist Mucous Membranes, Pharyngeal Erythema; No Photophobia, No Tonsillar Exudate, No Tonsillar Enlargement Neck: Full Range of Motion, Normal Inspection, Non Tender, Supple Respiratory: Lungs Clear, Normal Breath Sounds, No Accessory Muscle Use, No Respiratory Distress, Other (tender to palpation on anterior chest wall right more than left upper anterior chest wall, poor inspiratory effort as she starts to cough with deep breath) Cardiovascular: Regular Rate, Rhythm, No Murmur, Normal Peripheral Pulses Gastrointestinal: Normal Bowel Sounds, No Pulsatile Mass, Non Tender, Soft Rectal: Deferred Extremity: Normal Capillary Refill, Normal Inspection, No Calf Tenderness, No Pedal Edema Neurologic/Psychiatric: Alert, Oriented x3, armored vehicle officer II-XII Norm as Tested Skin: Normal Color, Warm/Dry; No Rash (DESTIN JORDAN MD) Focused Exam Lactate Level 03/19/21 06:11: Lactic Acid Level 0.92 (BURAK RAMOS MD) Lactic Acid Level Laboratory Tests Test 03/19/21 06:11 Lactic Acid Level 0.92 MMOL/L (0.50-2.00) (BURAK RAMOS MD) Progress/Results/Core Measures Suspected Sepsis SIRS Temperature: Pulse: 97 Respiratory Rate: 18 Laboratory Tests 03/19/21 06:11: White Blood Count 5.6 Blood Pressure 117 /85 Mean: 96 03/19/21 06:11: Lactic Acid Level 0.92 Laboratory Tests 03/19/21 06:11: Creatinine 0.87, INR Comment 1.0, Platelet Count 182, Total Bilirubin 0.5 (DESTIN JORDAN MD) Results/Orders Lab Results Laboratory Tests Test 03/19/21 06:11 03/19/21 06:32 Range/Units White Blood Count 5.6 4.3-11.0 10^3/uL Red Blood Count 5.00 3.80-5.11 10^6/uL Hemoglobin 15.1 11.5-16.0 g/dL Hematocrit 45 35-52 % Mean Corpuscular Volume 90 80-99 fL Mean Corpuscular Hemoglobin 30 25-34 pg Mean Corpuscular Hemoglobin Concent 34 32-36 g/dL Red Cell Distribution Width 13.3 10.0-14.5 % Platelet Count 182 130-400 10^3/uL Mean Platelet Volume 9.7 9.0-12.2 fL Immature Granulocyte % (Auto) 0 % Neutrophils (%) (Auto) 63 42-75 % Lymphocytes (%) (Auto) 28 12-44 % Monocytes (%) (Auto) 8 0-12 % Eosinophils (%) (Auto) 0 0-10 % Basophils (%) (Auto) 0 0-10 % Neutrophils # (Auto) 3.6 1.8-7.8 X 10^3 Lymphocytes # (Auto) 1.6 1.0-4.0 X 10^3 Monocytes # (Auto) 0.5 0.0-1.0 X 10^3 Eosinophils # (Auto) 0.0 0.0-0.3 10^3/uL Basophils # (Auto) 0.0 0.0-0.1 10^3/uL Immature Granulocyte # (Auto) 0.0 0.0-0.1 10^3/uL Prothrombin Time 13.8 12.2-14.7 SEC INR Comment 1.0 0.8-1.4 Activated Partial Thromboplast Time 32 24-35 SEC D-Dimer 0.59 H 0.00-0.49 UG/ML Sodium Level 131 L 135-145 MMOL/L Potassium Level 4.3 3.6-5.0 MMOL/L Chloride Level 96 L 98-107 MMOL/L Carbon Dioxide Level 23 21-32 MMOL/L Anion Gap 12 5-14 MMOL/L Blood Urea Nitrogen 10 7-18 MG/DL Creatinine 0.87 0.60-1.30 MG/DL Estimat Glomerular Filtration Rate 84 BUN/Creatinine Ratio 11 Glucose Level 111 H 70-105 MG/DL Lactic Acid Level 0.92 0.50-2.00 MMOL/L Calcium Level 8.8 8.5-10.1 MG/DL Corrected Calcium 8.8 8.5-10.1 MG/DL Magnesium Level 1.9 1.6-2.4 MG/DL Total Bilirubin 0.5 0.1-1.0 MG/DL Aspartate Amino Transf (AST/SGOT) 35 H 5-34 U/L Alanine Aminotransferase (ALT/SGPT) 31 0-55 U/L Alkaline Phosphatase 94 40-136 U/L Troponin I < 0.30 <0.30 NG/ML C-Reactive Protein 2.76 H <0.50 MG/DL Total Protein 7.4 6.4-8.2 GM/DL Albumin 4.0 3.2-4.5 GM/DL Lipase 23 8-78 U/L Serum Test, Qualitative NEGATIVE NEGATIVE Influenza Type A Antigen NEGATIVE NEGATIVE Influenza Type B Antigen NEGATIVE NEGATIVE Urine Color YELLOW Urine Clarity CLEAR Urine pH 6.0 5-9 Urine Specific Sullivan 1.015 L 1.016-1.022 Urine Protein TRACE H NEGATIVE Urine Glucose (UA) NEGATIVE NEGATIVE Urine Ketones NEGATIVE NEGATIVE Urine Nitrite NEGATIVE NEGATIVE Urine Bilirubin NEGATIVE NEGATIVE Urine Urobilinogen 1.0 < = 1.0 MG/DL Urine Leukocyte Esterase NEGATIVE NEGATIVE Urine RBC (Auto) NEGATIVE NEGATIVE Urine RBC NONE /HPF Urine WBC 2-5 /HPF Urine Squamous Epithelial Cells 10-25 H /HPF Urine Renal Epithelial Cells NONE /HPF Urine Crystals NONE /LPF Urine Bacteria MODERATE H /HPF Urine Casts NONE /LPF Urine Mucus LARGE H /LPF Urine Culture Indicated NO (BURAK RAMOS MD) Medications Given in ED Current Medications Medications Dose Ordered Sig/Yamel Route Start Time Stop Time Status Last Admin Dose Admin Iohexol 115 ml ONCE ONCE IV 03/19/21 07:15 03/19/21 07:16 DC 03/19/21 07:44 115 ML Ondansetron HCl 4 mg ONCE ONCE IV 03/19/21 06:30 03/19/21 06:31 DC 03/19/21 06:30 4 MG Sodium Chloride 10 ml NEEDED PRN IV 03/19/21 07:15 03/19/21 07:44 10 ML Sodium Chloride 100 ml ONCE ONCE IV 03/19/21 07:15 03/19/21 07:16 DC 03/19/21 07:44 100 ML (BURAK RAMOS MD) Vital Signs/I&O 03/19/21 05:47 Temp 37.5 Pulse 97 Resp 18 B/P (MAP) 117/85 (96) Pulse Ox 94 O2 Delivery Room Air (BURAK RAMOS MD) Vital Signs/I&O Capillary Refill : Less Than 3 Seconds (DESTIN JORDAN MD) Blood Pressure Mean: 96 Progress Note #1: Progress Note Obtain basic labs including lipase and urine with cultures and lactic acid. Swab to check for influenza and Covid. CXR to look for pneumonia with her cough and hx of chronic bronchitis. Give IV fluids for hydration, Zofran for nausea, Toradol for body aches and pain, albuterol inhaler with spacer for cough and shortness of breath. Protonix for gastritis and nausea. Differential diagnosis includes COVID 19 gastroenteritis, sepsis, pneumonia, colitis, diverticulitis, cystitis, pyelonephritis, pancreatitis Progress Note #2: Time: 07:00 Progress Note Chest x-ray shows patchy infiltrates worse in the right upper lobe consistent with possible COVID infection versus viral infection. Her CBC does not show any acute significant abnormalities and no elevation of her white blood cell count. Her chemistry panel, lipase, lactic acid were not show any acute significant abnormalities other than she did have an elevated CRP you to go along with inflammatory process and viral syndrome. Her urinalysis did not show signs of infection but she did have a lot of epithelial skin cells and some bacteria. She had an slightly elevated D-dimer of 0.59. Considering she has pain in the right upper chest, likely COVID with recent exposure and positive findings on exam and testing, and elevated D-dimer will obtain a CT angiogram to evaluate for possible PE. Add on a dose of Decadron to help with her chronic bronchitis, shortness of breath, cough. Give Zithromax and Rocephin for possible atypical bacterial pneumonia. Care passed to Dr. Ramos at shift change to follow-up on CT angiogram and disposition of patient (DESTIN JORDAN MD) Progress Note : Progress Note I received the patient in signout pending the CTA chest. I evaluated the patient, and she is nontoxic-appearing, heart rate is down to the 70s after fluids. The CTA was negative for PE, but does have an atypical pneumonia appearance. She was given her first dose of azithromycin here and will get a prescription to finish her course. COVID test is pending at this time. On reassessment she continues to appear well, and I believe she is stable for discharge with outpa tient follow-up. She was sent home with strict return precautions. (BURAK RAMOS MD) Diagnostic Imaging Diagonstic Imaging: Xray Plain Films/CT/US/NM/MRI: chest Comments NAME: RACHEL LOVELL [facility] REC#: [id number] PT STATUS: REG ER : 1975 PHYSICIAN: DESTIN JORDAN MD ADMIT DATE: 03/19/21/ER FS Draft Date of Exam:03/19/21 CHEST 1 VIEW AP/PA ONLY INDICATION: Cough, COVID PUI. Nausea, vomiting and diarrhea x3-4 days. TECHNIQUE: Single view chest 6:22 AM. CORRELATION STUDY: 08/03/2020 FINDINGS: The heart size, mediastinal configuration and pulmonary vascularity are within normal limits. Scattered patchy groundglass opacities are present. This is most noticeable about the right mid upper lung field. IMPRESSION: 1. Pulmonary opacities are present most pronounced at the right upper lobe. Suspect for a multilobe pneumonia. This would include potential for COVID pneumonia. Dictated on workstation # [id number] Dict: 03/19/21629 Trans: 03/19/21 0640 CV [id number] Interpreted by: EMMANUELLE PALMER DO Electronically signed by: Reviewed: Reviewed by Me (DESTIN JORDAN MD) Transfer of Care Transfer of Care Time: 07:00 Care transferred to: Dr. Ramos (DESTIN JORDAN MD) Departure Impression Primary Impression: Person under investigation for severe acute respiratory syndrome coronavirus 2 (SARS-CoV-2) infection Additional Impressions: Nausea vomiting and diarrhea Acute viral syndrome Disposition: HOME, SELF-CARE Condition: Stable Departure-Patient Inst. Decision time for Depature: 08:03 (BURAK RAMOS MD) Referrals: NO,LOCAL PHYSICIAN (PCP) Primary Care Physician [facility] Call [phone] to get appointment and establish care with primary provider in [facility] Patient Instructions: COVID-19 Tests, COVID-19 ED, Nausea and Vomiting, Adult ED, Diarrhea, Adult ED Add. Discharge Instructions: You do look like you have pneumonia on your chest x-ray. This likely is related to COVID. Your COVID test however will not be back for at least 24 hours, but sometimes sooner. Please isolate for 5 days, and then you can wear a mask around people for a total of 10 days. If anybody else in your family that is around you get sick, you can assume they have COVID without a test and have them isolate for 5 days as well. I have sent an antibiotic to your pharmacy just in case there is overlying bacterial pneumonia. Please call [facility] to schedule an appointment within the next week to be sure you are improving, and also to establish care with them. Scripts Azithromycin (Azithromycin) 250 Mg Tablet 250 MG PO DAILY, #5 TAB 0 Refills Prov: BURAK RAMOS MD 03/19/21 Work/School Note: Work Release Form Date Seen in the Emergency Department: Mar 19, 2021 Return to Work: Mar 25, 2021 Restrictions: Return-No Fever (24hrs) DESTIN JORDAN MD Mar 19, 2021 06:28 BURAK RAMOS MD Mar 19, 2021 07:37
[2021-03-19] MEDS ORDERED: NS IV 1000 ML 1,000 ML IV SCH (06:30)
[2021-03-19] MEDS ORDERED: ONDANSETRON 4 MG/2 ML (SDV) Z0FRAN IV ONE (06:30)
[2021-03-19 06:35] LABS: BASOPHILS % (AUTO) 0 % (0-10); EOSINOPHILS % (AUTO) 0 % (0-10); HEMATOCRIT 45 % (35-52); HEMOGLOBIN 15.1 g/dL (11.5-16.0); LYMPHOCYTES % (AUTO) 28 % (12-44); MEAN CORPUSCULAR HEMOGLOBIN 30 pg (25-34); MEAN CORPUSCULAR HGB CONC 34 g/dL (32-36); MEAN CORPUSCULAR VOLUME 90 fL (80-99); MEAN PLATELET VOLUME 9.7 fL (9.0-12.2); MONOCYTES % (AUTO) 8 % (0-12); NEUTROPHILS # (AUTO) 3.6 X 10^3 (1.8-7.8); NEUTROPHILS % (AUTO) 63 % (42-75); PLATELET COUNT 182 10^3/uL (130-400); WHITE BLOOD COUNT 5.6 10^3/uL (4.3-11.0)
[2021-03-19 06:36] LABS: LYMPHOCYTES # (AUTO) 1.6 X 10^3 (1.0-4.0); MONOCYTES # (AUTO) 0.5 X 10^3 (0.0-1.0)
[2021-03-19 06:41] LABS: BILIRUBIN,URINE NEGATIVE (NEGATIVE); CLARITY,URINE CLEAR; COLOR,URINE YELLOW; GLUCOSE, URINE (UA) NEGATIVE (NEGATIVE); KETONES,URINE NEGATIVE (NEGATIVE); LEUKOCYTE ESTERASE ,URINE NEGATIVE (NEGATIVE); NITRITE,URINE NEGATIVE (NEGATIVE); PROTEIN,URINE TRACE (NEGATIVE)
--- NOTE | 2021-03-19 06:41 | Diagnostic Imaging Report ---
INDICATION: Cough, COVID PUI. Nausea, vomiting and diarrhea x3-4 days. TECHNIQUE: Single view chest 6:22 AM. CORRELATION STUDY: 08/03/2020 FINDINGS: The heart size, mediastinal configuration and pulmonary vascularity are within normal limits. Scattered patchy groundglass opacities are present. This is most noticeable about the right mid upper lung field. IMPRESSION: 1. Pulmonary opacities are present most pronounced at the right upper lobe. Suspect for a multilobe pneumonia. This would include potential for COVID pneumonia. Dictated by: Dictated on workstation # [id number]
[2021-03-19 06:42] LABS: BACTERIA,URINE MODERATE /HPF
[2021-03-19 06:45] LABS: ALANINE AMINOTRANSFERASE 31 U/L (0-55); ALKALINE PHOSPHATASE 94 U/L (40-136); BILIRUBIN,TOTAL 0.5 MG/DL (0.1-1.0); BUN/CREATININE RATIO 11; CALCIUM 8.8 MG/DL (8.5-10.1); CARBON DIOXIDE 23 MMOL/L (21-32); CHLORIDE 96 MMOL/L (98-107); CREATININE SERUM 0.87 MG/DL (0.60-1.30); GFR ESTIMATED 84; GLUCOSE 111 MG/DL (70-105); MAGNESIUM 1.9 MG/DL (1.6-2.4); POTASSIUM 4.3 MMOL/L (3.6-5.0); SODIUM 131 MMOL/L (135-145); TOTAL PROTEIN 7.4 GM/DL (6.4-8.2)
[2021-03-19 06:55] LABS: PROTHROMBIN TIME PATIENT 13.8 SEC (12.2-14.7)
[2021-03-19] MEDS ORDERED: AZITHROMYCIN INJECTION 500 MG in NS (IVPB) 250 ML IV STA (07:07)
[2021-03-19] MEDS ORDERED: cefTRIAXone 1 GM PRE-MIX 50 ML IV STA (07:07)
[2021-03-19] MEDS ORDERED: HOLD METFORMIN - RECEIVED CONTRAST 20 ML VIAL IV SCH (07:15)
[2021-03-19] MEDS ORDERED: CATHETER FLUSH 10 ML SYR IV PRN (07:15)
[2021-03-19] MEDS ORDERED: NS 100 ML (IVPB) BAG IV ONE (07:15)
[2021-03-19] MEDS ORDERED: IOHEXOL 350 MG/ML 150 ML (OMNIPAQUE 350) VIAL IV ONE (07:15)
[2021-03-19] MEDS ORDERED: AZIT250T12 PO (07:37)
--- NOTE | 2021-03-19 07:57 | Diagnostic Imaging Report ---
PROCEDURE: CT angiography of the chest with contrast. TECHNIQUE: Multiple contiguous axial images were obtained through the chest after uneventful bolus administration of intravenous contrast. 3D reconstructed CTA MIP acquisitions were also performed. Auto Exposure Controls were utilized during the CT exam to meet ALARA standards for radiation dose reduction. INDICATION: 45-year-old female, cough, shortness of breath, elevated D-dimer. CORRELATION: None FINDINGS: Heart size within normal limits. There is no disproportionate right heart strain. No pericardial effusion. Thoracic aorta is unremarkable. Mildly prominent right suprahilar lymphadenopathy measuring up to 2.4 x 1.9 cm. There is no significant pulmonary artery filling defect to suggest pulmonary embolism. Scattered areas of airspace opacity are present. This most pronounced involving the posterior superior segment right lower lobe as well as a more posterior basilar aspect of the right upper lobe. Minimal osteophyte within the right middle lobe as well as the lateral aspect left upper lobe. No significant pleural effusion. Rather prominent severity hepatic steatosis. The visualized osseous structures demonstrate no acute findings. IMPRESSION: 1. No CTA evidence for pulmonary embolism or acute aortic syndrome. 2. Multilobar airspace opacity but most pronounced involving the right lower lobe and upper lobe in their posterior aspect. Minimal areas of infiltrate at the left upper lobe and middle right middle lobe. Favors multilobe pneumonia. While it would include potential for COVID, it is somewhat of an atypical pattern/distribution for this and alternative forms of pneumonia should be considered. 3. Likely reactive lymphadenopathy right suprahilar region. 4. Followup imaging evaluation recommended to document resolution. Dictated by: Dictated on workstation # [id number]
[2021-03-19 08:28] VITALS: BP 113/55
== END 2021-03-19 09:00 | disposition home or self-care (01) ==
LOC: EDUNIT# 05:44 → ER FS 05:46
DX: U07.1 COVID-19 (principal); R11.2 Nausea with vomiting, unspecified; Z87.891 Personal history of nicotine dependence
CPT/HCPCS: 36415; 71045; 71275; 80053; 81000; 83605; 83690; 83735; 84484; 84703; 85025; 85379; 85610; 85730; 86141; 87040; 87636; 87804; 96365; 96375

== ENCOUNTER → 2021-12-28 | Outpatient (CLI) | payer SELFPAY ==
[~2021-12-28] MED LIST changes: +AZIT250T12 PO
--- NOTE | 2021-12-28 17:24 | Diagnostic Imaging Report ---
INDICATION: Injury, pain. EXAMINATION: Left knee 12/28/2021. FINDINGS: 4 views of the knee There is mild medial compartment narrowing and spurring. Lateral compartment is preserved. Patellofemoral joint space maintained. No fractures or dislocations. IMPRESSION: 1. Chronic findings with no acute osseous abnormality. Dictated by: Dictated on workstation # [id number]
== END ==
LOC: RAD FS 11:43
PROVIDERS: ATTEND Nurse Practitioner
DX: S89.92XA Unspecified injury of left lower leg, initial encounter (principal); X58.XXXA Exposure to other specified factors, initial encounter
CPT/HCPCS: 73564